=== PATIENT | male | born 1945 | race African-American/Black ===

== ENCOUNTER → 2017-03-03 | Outpatient (CLI) | payer OTHER ==
[~2017-03-03] MED LIST: AMINOPHYLLINE INJ/PF 250 MG/10 ML SDV IV ONE; REGADENOSON INJ 0.4 MG/5 ML DISP.SYRIN IV ONE
--- NOTE | 2017-03-03 14:26 | DRAGON STRESS TEST REPORT ---
INTRAVENOUS LEXISCAN CARDIOLITE STRESS TEST USING SINGLE PHOTON EMMISION COMPUTERIZED TOMOGRAPHIC. DATE OF PROCEDURE: March 03, 2017 INDICATION : Coronary artery disease CARDIAC RISK FACTORS: Diabetes, hypertension, dyslipidemia, history of stent placement. RESTING EKG: Sinus rhythm with minor nonspecific ST-T wave changes STRESS EKG: No significant changes noted with LexiScan bolus REASON FOR TERMINATION: Protocol. PROCEDURE REPORT: Baseline heart rate 64 beats per minute with blood pressure of 158/82. Patient had no significant complaints. Heart rate at 2 minutes post bolus 82 with a blood pressure of 141/66. 3 minutes post bolus heart rate 75 with blood pressure of 150/75. No significant EKG changes were noted. Patient had no significant complaints during the procedure or postprocedure. Patient injected with Aminophyllin 75 mg at 3 minutes or later after Lexiscan bolus. CONCLUSIONS: Normal EKG and hemodynamic response to IV LexiScan. NUCLEAR DATA: At rest the patient was given 14.46 millicuries of technetium 99 sestamibi injected intravenously. As per protocol rest gated SPECT images were obtained. Subsequently the patient was given intravenous LexiScan at a dose of 0.4 mg in 5 mL intravenously, followed by flush with normal saline. Subsequently the stress dose of 45.1 millicuries of technetium 99 sestamibi was injected intravenously. As per protocol stress gated images were obtained. NUCLEAR INTERPRETATION: Both raw and processed data were used for interpretation. Visual, qualitative, computer-generated quantitative data was used. There was good myocardial uptake of technetium compound. Motion artifact and soft tissue attenuations were noted. Increased visceral uptake was noted. No definitive areas of transient perfusion defect noted. No definitive areas of fixed perfusion defect or scars noted. EKG gated imaging showed LV EF at 54 %, rest and stress gated EF similar visually. T. I D. ratio was 1.14. Lung heart ratio noted to be within normal limits 0.39. No significant extracardiac and abnormal radiotracer activities were noted. RV free wall uptake was noted to be mildly increased. IMPRESSION: Also refer to comments under nuclear interpretation. Also test results needs to be interpreted in the context of pretest probability. 1. There is no definitive scintigraphic evidence of LexiScan induced myocardial ischemia. 2. There is no definitive scintigraphic evidence of myocardial infarction/scar. 3. EKG gated imaging shows left ventricular ejection fraction of approximately 54 %. 4. Clinical correlation requested as occasionally single vessel disease or balanced ischemia could be missed. In approximately 10% of the cases Lexiscan may not cause adequate vasodilatory stress. RECOMMENDATIONS: Aggressive risk factor modification, medical therapy. Clinical correlation with echocardiogram derived ejection fraction. Inability to exercise by itself can lead to increased cardiovascular event risks. Consider cardiology consultation and or follow-up if clinically indicated. I AM AVAILABLE FOR CARDIOLOGY CONSULTATION AND FOLLOWUP IF REQUESTED BY PMD Tori Almeida M.D., [employer] Engineer aerial installer, Board certified in cardiovascular diseases, Nuclear cardiology, Echocardiography Cardiac CT and cardiac MRI Ph. [phone] [facility]
== END ==
LOC: RAD 06:58
PROVIDERS: ATTEND Internal Medicine Cardiovascular Disease
DX: R07.9 Chest pain, unspecified (principal); I25.10 Atherosclerotic heart disease of native coronary artery without angina pectoris; Z98.61 Coronary angioplasty status; I10 Essential (primary) hypertension; E78.5 Hyperlipidemia, unspecified; E11.9 Type 2 diabetes mellitus without complications
CPT/HCPCS: 93017; 78452; A9500; J2785; J0280; Q9969

== ENCOUNTER 2017-10-06 23:05 | Emergency (ER) | payer OTHER, MEDICARE ==
--- NOTE | 2017-10-07 00:30 | ER Document Report ---
ED General - General Mode of Arrival: Ambulatory Information source: Patient TRAVEL OUTSIDE OF THE [place] IN LAST 30 DAYS: No <SAMMIE RICHTER - Last Filed: 10/07/17 01:25> <PAYAL LOUIS - Last Filed: 10/07/17 06:44> - General Chief Complaint: Inability to Void Stated Complaint: URINARY RETENTION Time Seen by Provider: 10/07/17 00:12 Notes: Patient is a 72-year-old male with a history of AR, diabetes, HTN, and high cholesterol presenting to the emergency department complaining of dysuria onset this morning with associated symptoms of hematuria and blood in stool. Patient states that he had a prostate biopsy this morning and has been unable to fully urinate further stating that he has only been able to excrete a few drops of urine even though he has the urgency to urinate. Patient states that he has had a prostate biopsy in the past where similar symptoms occurred where he needed to have a catheter placed, further stating his symptoms were relieved after doing so. Patient also states he noticed a small amount of blood in stool , last noticed around 21:00 today. Patient also complains of some chest pain onset today. Patient states his chest pain is not similar to his symptoms of his previous AR. (SAMMIE RICHTER) - Related Data Allergies/Adverse Reactions: No Known Allergies Allergy (Verified 08/28/14 20:05) Past Medical History - General Information source: Patient, Relative - Social History Smoking Status: Never Smoker Cigarette use (# per day): No Chew tobacco use (# tins/day): No Smoking Education Provided: No Frequency of alcohol use: None Family History: Reviewed & Not Pertinent - Past Medical History Cardiac Medical History: Reports: Hx Heart Attack, Hx Hypercholesterolemia, Hx Hypertension Pulmonary Medical History: Reports: Hx COPD Endocrine Medical History: Reports: Hx Diabetes Mellitus Type 2 Past Surgical History: Reports: Hx Cardiac Surgery - stent, Hx Coronary Stent - Immunizations Hx Diphtheria, Pertussis, Tetanus Vaccination: Yes <SAMMIE RICHTER - Last Filed: 10/07/17 01:25> Review of Systems - Review of Systems Constitutional: No symptoms reported EENT: No symptoms reported Cardiovascular: See HPI, Chest pain Respiratory: No symptoms reported Gastrointestinal: No symptoms reported Genitourinary: See HPI, Dysuria, Urgency Male Genitourinary: No symptoms reported Musculoskeletal: No symptoms reported Skin: No symptoms reported Hematologic/Lymphatic: No symptoms reported Neurological/Psychological: No symptoms reported -: Yes All other systems reviewed and negative <ROBERSAMMIE ROBBINS - Last Filed: 10/07/17 01:25> Physical Exam <SAMMIE RICHTER - Last Filed: 10/07/17 01:25> <PAYAL LOUIS - Last Filed: 10/07/17 06:44> - Vital signs Vitals: Temp Pulse Resp BP Pulse Ox 97.9 F 98 18 197/96 H 97 10/06/17 23:13 10/06/17 23:13 10/06/17 23:13 10/06/17 23:13 10/06/17 23:13 - Notes Notes: GENERAL: Alert, interacts well. Appears uncomfortable. HEAD: Normocephalic, atraumatic. EYES: Pupils equal, round, and reactive to light. Extraocular movements intact. ENT: Oral mucosa moist, tongue midline. NECK: Full range of motion. Supple. Trachea midline. LUNGS: Clear to auscultation bilaterally, no wheezes, rales, or rhonchi. No respiratory distress. HEART: Regular rate and rhythm. No murmurs, gallops, or rubs. ABDOMEN: Bladder distended which is tender to palpation. Bowel sounds present in all 4 quadrants. EXTREMITIES: Moves all 4 extremities spontaneously. NEUROLOGICAL: Alert and oriented x3. Normal speech. PSYCH: Normal affect, normal mood. SKIN: Warm, dry, normal turgor. No rashes or lesions noted. (SAMMIE RICHTER) Course - Laboratory Result Diagrams: 10/07/17 01:10 10/07/17 01:10 <ROBER,TAMJULIAN - Last Filed: 10/07/17 01:25> - Laboratory Result Diagrams: 10/07/17 01:10 10/07/17 01:10 <PAYAL LOUIS - Last Filed: 10/07/17 06:44> - Re-evaluation Re-evalutation: 10/07/17 01:19 Patient is rechecked, pain is completely resolved including his chest pain, abdomen is palpated and soft after Venegas catheter placement, 1200 mL's of clear yellow urine have been obtained at this point. Feeling much better. 10/07/17 03:43 CBC unremarkable, CMP grossly unremarkable, cardiac enzymes negative, CBC shows slight leukocytosis at 12.2 likely a reaction to the biopsy today, mild anemia with hemoglobin 12.6 otherwise unremarkable, chemistries show sodium slightly below 136.7, potassium low at 3.2, given potassium by mouth, cardiac enzymes negative. All pain and all symptoms resolved after Venegas catheter was placed. Well over 1500 mL's of clear urine were obtained. No evidence of active bleeding at this time. Patient will be discharged to home with Venegas catheter in place. Encouraged to follow-up with urology as an outpatient. 10/07/17 03:43 Already taking Flomax. (PAYAL LOUIS) - Vital Signs Vital signs: Temp Pulse Resp BP Pulse Ox 97.9 F 72 18 152/84 H 98 10/06/17 23:13 10/07/17 04:00 10/07/17 04:00 10/07/17 04:00 10/07/17 04:00 - Laboratory Laboratory results interpreted by me: 10/07/17 10/07/17 01:10 01:10 WBC 12.4 H Hgb 12.6 L Hct 37.5 L Seg Neuts % (Manual) 91 H Lymphocytes % (Manual) 2 L Abs Neuts (Manual) 11.3 H Abs Lymphs (Manual) 0.2 L Sodium 136.7 L Potassium 3.2 L Glucose 117 H Discharge <SAMMIE RICHTER - Last Filed: 10/07/17 01:25> <PAYAL LOUIS - Last Filed: 10/07/17 06:44> - Discharge Clinical Impression: Acute urinary retention Condition: Stable Disposition: HOME, SELF-CARE Referrals: TERESA MISTRY MD [Primary Care Provider] - Follow up in 3-5 days Scribe Attestation: 10/07/17 06:44 I personally performed the services described in the documentation, reviewed and edited the documentation which was dictated to the scribe in my presence, and it accurately records my words and actions. (PAYAL LOUIS) Scribe Documentation - Scribe Written by Arsenio:: Arsenio Macias, 10/07/2017 00:55 acting as scribe for :: King <SAMMIE RICHTER - Last Filed: 10/07/17 01:25>
[2017-10-07 01:36] LABS: HEMATOCRIT 37.5 % (37.9-51.0); HEMOGLOBIN 12.6 g/dL (13.5-17.0); MEAN CORPUSCULAR HEMOGLOBIN 28.4 pg (27.0-33.4); MEAN CORPUSCULAR HGB CONC 33.7 g/dL (32.0-36.0); MEAN CORPUSCULAR VOLUME 85 fl (80-97); PLATELET COUNT 187 10^3/uL (150-450); RED BLOOD COUNT 4.44 10^6/uL (4.35-5.55); RED CELL DISTRIBUTION WIDTH 13.8 % (11.5-14.0); WHITE BLOOD COUNT 12.4 10^3/uL (4.0-10.5)
[2017-10-07 01:50] LABS: ALANINE AMINOTRANSFERASE 28 U/L (21-72); ALBUMIN 3.9 g/dL (3.5-5.0); ALKALINE PHOSPHATASE 55 U/L (38-126); ANION GAP 12 (5-19); ASPARTATE AMINO TRANSFERASE 22 U/L (17-59); BILIRUBIN,DIRECT 0.4 mg/dL (0.0-0.4); BILIRUBIN,TOTAL 0.7 mg/dL (0.2-1.3); BLOOD UREA NITROGEN 20 mg/dL (7-20); CALCIUM 9.4 mg/dL (8.4-10.2); CARBON DIOXIDE 24 mmol/L (22-30); CHLORIDE 101 mmol/L (98-107); CREATINE KINASE 159 U/L (55-170); GLUCOSE 117 mg/dL (75-110); POTASSIUM 3.2 mmol/L (3.6-5.0); SODIUM 136.7 mmol/L (137-145); TOTAL PROTEIN 6.9 g/dL (6.3-8.2)
[2017-10-07 01:59] LABS: ABSOLUTE LYMPHOCYTES# (MANUAL) 0.2 10^3/uL (0.5-4.7); ABSOLUTE MONOCYTES # (MANUAL) 0.9 10^3/uL (0.1-1.4); ABSOLUTE NEUTROPHILS# (MANUAL) 11.3 10^3/uL (1.7-8.2); BASOPHILS % (MANUAL) 0 % (0-2); EOSINOPHILS % (MANUAL) 0 % (0-6); LYMPHOCYTES % (MANUAL) 2 % (13-45); MONOCYTES % (MANUAL) 7 % (3-13); SEGMENTED NEUTROPHILS % (MAN) 91 % (42-78); TOTAL CELLS COUNTED 100
[2017-10-07 02:01] LABS: ANISOCYTOSIS SLIGHT; PLATELET COMMENT ADEQUATE; PLATELET LARGE PRESENT; SCHISTOCYTES SLIGHT; TOXIC GRANULATION SLIGHT
[2017-10-07 02:13] LABS: CREATINE KINASE MB 1.43 ng/mL (<4.55)
[2017-10-07 02:14] LABS: TROPONIN I < 0.012 ng/mL
[2017-10-07 04:44] VITALS: BP 152/84
== END 2017-10-07 04:00 | disposition home or self-care (01) ==
LOC: ER 23:05
PROC: 0T9B70Z Drainage of Bladder with Drainage Device, Via Natural or Artificial Opening (ICD-10-PCS; principal; 2017-10-06)
DX: R33.9 Retention of urine, unspecified (principal); R30.0 Dysuria; R39.15 Urgency of urination; R31.9 Hematuria, unspecified; K92.1 Melena; R07.9 Chest pain, unspecified; E11.9 Type 2 diabetes mellitus without complications; I10 Essential (primary) hypertension; I25.2 Old myocardial infarction; J44.9 Chronic obstructive pulmonary disease, unspecified; Z79.899 Other long term (current) drug therapy
CPT/HCPCS: 36415; 51702; 80053; 82550; 82553; 84484; 85025; 99283

== ENCOUNTER 2017-10-08 21:16 | Inpatient (IN) | payer OTHER, MEDICARE ==
[2017-10-08] MEDS ORDERED: LIDOCAINE 2% URO-JET 5 ML KIT MM ONE (21:44)
[2017-10-08 22:49] LABS: HEMATOCRIT 35.6 % (37.9-51.0); HEMOGLOBIN 12.3 g/dL (13.5-17.0); MEAN CORPUSCULAR HEMOGLOBIN 29.1 pg (27.0-33.4); MEAN CORPUSCULAR HGB CONC 34.5 g/dL (32.0-36.0); MEAN CORPUSCULAR VOLUME 84 fl (80-97); PLATELET COUNT 159 10^3/uL (150-450); RED BLOOD COUNT 4.22 10^6/uL (4.35-5.55); RED CELL DISTRIBUTION WIDTH 14.4 % (11.5-14.0)
[2017-10-08 22:55] LABS: AMORPHOUS SEDIMENT,URINE TRACE /HPF; APPEARANCE,URINE SLIGHTLY-CLOUDY; BILIRUBIN,URINE NEGATIVE (NEGATIVE); COLOR,URINE YELLOW; GLUCOSE, URINE NEGATIVE (NEGATIVE); KETONES,URINE NEGATIVE (NEGATIVE); LEUKOCYTE ESTERASE,URINE SMALL (NEGATIVE); NITRITE,URINE NEGATIVE (NEGATIVE); PROTEIN,URINE 30 mg/dL (NEGATIVE); URINE SPECIFIC GRAVITY 1.006; UROBILINOGEN,URINE NEGATIVE mg/dL (<2.0)
[2017-10-08 23:02] LABS: ABSOLUTE LYMPHOCYTES# (MANUAL) 0.6 10^3/uL (0.5-4.7); ABSOLUTE MONOCYTES # (MANUAL) 2.1 10^3/uL (0.1-1.4); ABSOLUTE NEUTROPHILS# (MANUAL) 16.3 10^3/uL (1.7-8.2); ANISOCYTOSIS SLIGHT; BASOPHILS % (MANUAL) 0 % (0-2); EOSINOPHILS % (MANUAL) 0 % (0-6); LYMPHOCYTES % (MANUAL) 3 % (13-45); MONOCYTES % (MANUAL) 11 % (3-13); PLATELET COMMENT ADEQUATE; SEGMENTED NEUTROPHILS % (MAN) 86 % (42-78); TOTAL CELLS COUNTED 100; TOXIC GRANULATION SLIGHT
[2017-10-08 23:08] LABS: ALANINE AMINOTRANSFERASE 25 U/L (21-72); ALBUMIN 3.7 g/dL (3.5-5.0); ALKALINE PHOSPHATASE 57 U/L (38-126); ANION GAP 13 (5-19); ASPARTATE AMINO TRANSFERASE 22 U/L (17-59); BILIRUBIN,DIRECT 0.2 mg/dL (0.0-0.4); BILIRUBIN,TOTAL 0.9 mg/dL (0.2-1.3); BLOOD UREA NITROGEN 23 mg/dL (7-20); CALCIUM 9.4 mg/dL (8.4-10.2); CARBON DIOXIDE 26 mmol/L (22-30); CHLORIDE 99 mmol/L (98-107); GLUCOSE 149 mg/dL (75-110); POTASSIUM 3.3 mmol/L (3.6-5.0); SODIUM 137.7 mmol/L (137-145); TOTAL PROTEIN 6.5 g/dL (6.3-8.2)
--- NOTE | 2017-10-08 23:36 | ER Document Report ---
ED Fever - General Chief Complaint: Fever Stated Complaint: FEVER Time Seen by Provider: 10/08/17 21:30 Mode of Arrival: Medic Information source: Patient Notes: Patient states that he recently had a prostate biopsy 2 days ago. Patient states that later in the evening on the day he had the biopsy he had difficulty urinating and had to come to the emergency department and had a Jiang catheter placed. Patient states that he has noticed occasional blood in the Jiang catheter tubing. EMS states that patient's Jiang catheter was not attached to the drainage tubing and he was dribbling urine. Patient states that he has had leaking urine from the Jiang for the past 2 days. Patient reports fever and chills today. Patient denies any cough cold symptoms chest pain, abdominal pain or back pain. Patient denies any obvious source for his fever. TRAVEL OUTSIDE OF THE [place] IN LAST 30 DAYS: No - HPI Onset: This evening Onset/Duration: Gradual Quality of pain: No pain Pain Level: Denies Context: Indwelling jiang Associated symptoms: Fever. denies: Chest pain, Nonproductive cough, Productive cough, Diarrhea, Nausea, Vomiting, Sweating Similar symptoms previously: No Recently seen / treated by doctor: Yes - Related Data Allergies/Adverse Reactions: No Known Allergies Allergy (Verified 08/28/14 20:05) Past Medical History - General Information source: Patient - Social History Smoking Status: Never Smoker Frequency of alcohol use: None Drug Abuse: None Occupation: None Lives with: Spouse/Significant other Family History: Reviewed & Not Pertinent - Past Medical History Cardiac Medical History: Reports: Hx Heart Attack, Hx Hypercholesterolemia, Hx Hypertension Pulmonary Medical History: Reports: Hx COPD Endocrine Medical History: Reports: Hx Diabetes Mellitus Type 2 Renal/ Medical History: Reports: Other - Prostate enlargement. Denies: Hx Peritoneal Dialysis Past Surgical History: Reports: Hx Cardiac Surgery - stent, Hx Coronary Stent, Other - Prostate biopsy - Immunizations Hx Diphtheria, Pertussis, Tetanus Vaccination: Yes Review of Systems - Review of Systems Constitutional: Chills, Fever. denies: Recent illness EENT: No symptoms reported Cardiovascular: No symptoms reported. denies: Chest pain, Syncope, Dizziness Respiratory: No symptoms reported. denies: Cough, Short of breath Gastrointestinal: No symptoms reported. denies: Abdominal pain, Diarrhea, Nausea, Vomiting Genitourinary: Retention - Jiang catheter in place. denies: Dysuria Male Genitourinary: No symptoms reported Musculoskeletal: No symptoms reported. denies: Back pain Skin: No symptoms reported Hematologic/Lymphatic: No symptoms reported Neurological/Psychological: No symptoms reported. denies: Confusion, Weakness, Headaches Physical Exam - Vital signs Vitals: Resp Pulse Ox 21 H 97 10/09/17 01:34 10/09/17 01:34 - General General appearance: Appears well, Alert In distress: None - HEENT Head: Normocephalic Eyes: Normal Nasal: Normal Mouth/Lips: Normal Mucous membranes: Normal Neck: Normal, Supple. No: Lymphadenopathy - Respiratory Respiratory status: No respiratory distress Chest status: Nontender Breath sounds: Normal. No: Rales, Rhonchi, Stridor, Wheezing Chest palpation: Normal - Cardiovascular Rhythm: Regular Heart sounds: S1 appreciated, S2 appreciated - Abdominal Inspection: Obese Distension: No distension Bowel sounds: Normal Tenderness: Nontender Organomegaly: No organomegaly - Rectal Tenderness: Yes Hemorrhoids: None Prostate: Tender - Back Back: Normal, Nontender. No: CVA tenderness - Extremities General upper extremity: Normal inspection, Normal strength General lower extremity: Normal inspection, Normal strength - Neurological Neuro grossly intact: Yes Cognition: Normal [place] Coma Scale Eye Opening: Spontaneous [place] Coma Scale Verbal: Oriented [place] Coma Scale Motor: Obeys Commands [place] Coma Scale Total: 15 - Psychological Associated symptoms: Normal affect, Normal mood - Skin Skin Temperature: Warm Skin Moisture: Dry Skin Color: Normal Course - Re-evaluation Re-evalutation: 10/08/17 23:54 Patient's abdomen continues soft, nontender, no flank tenderness. Consulted with Dr. Deluca regarding patient presentation, advises finishing septic evaluation including lactic acid testing and consultation with his primary doctor for admission. Recommends treating with cefepime and vancomycin. 10/08/17 23:58 Patient's repeat vital signs 98.8, 18, 98%, 121/57 10/09/17 00:[address] Powell regarding patient presentation, reviewed diagnostic test results. Dr. Powell agrees to accept patient as a telemetry admission. 10/09/17 01:02 RN encouraged to have patient on drag seiner. 10/09/17 03:00 Vital signs continue stable, patient denies any concerns at this time. - Vital Signs Vital signs: Temp Pulse Resp BP Pulse Ox 98.4 F 70 16 121/71 100 10/09/17 03:10 10/09/17 03:10 10/09/17 03:10 10/09/17 03:10 10/09/17 03:10 - Laboratory Result Diagrams: 10/08/17 22:29 10/08/17 22:29 Laboratory results interpreted by me: 10/08/17 10/08/17 10/08/17 22:29 22:29 22:29 WBC 19.0 H RBC 4.22 L Hgb 12.3 L Hct 35.6 L RDW 14.4 H Seg Neuts % (Manual) 86 H Lymphocytes % (Manual) 3 L Abs Neuts (Manual) 16.3 H Abs Monocytes (Manual) 2.1 H PT VBG pH Potassium 3.3 L BUN 23 H Creatinine 1.61 H Est GFR ( Amer) 52 L Est GFR (Non-Af Amer) 43 L Glucose 149 H Urine Protein 30 H Urine Blood LARGE H Ur Leukocyte Esterase SMALL H 10/08/17 10/09/17 22:29 00:45 WBC RBC Hgb Hct RDW Seg Neuts % (Manual) Lymphocytes % (Manual) Abs Neuts (Manual) Abs Monocytes (Manual) PT 16.7 H VBG pH 7.44 H Potassium BUN Creatinine Est GFR ( Amer) Est GFR (Non-Af Amer) Glucose Urine Protein Urine Blood Ur Leukocyte Esterase 10/09/17 07:27 Labs- Entire Visit 10/08/17 10/08/17 10/08/17 22:29 22:29 22:29 WBC 19.0 H RBC 4.22 L Hgb 12.3 L Hct 35.6 L MCV 84 MCH 29.1 MCHC 34.5 RDW 14.4 H Plt Count 159 Total Counted 100 Seg Neutrophils % Not Reportable Seg Neuts % (Manual) 86 H Lymphocytes % Not Reportable Lymphocytes % (Manual) 3 L Monocytes % Not Reportable Monocytes % (Manual) 11 Eosinophils % Not Reportable Eosinophils % (Manual) 0 Basophils % Not Reportable Basophils % (Manual) 0 Absolute Neutrophils Not Reportable Abs Neuts (Manual) 16.3 H Absolute Lymphocytes Not Reportable Abs Lymphs (Manual) 0.6 Absolute Monocytes Not Reportable Abs Monocytes (Manual) 2.1 H Absolute Eosinophils Not Reportable Absolute Eos (Manual) 0.0 Absolute Basophils Not Reportable Abs Basophils (Manual) 0.0 Toxic Granulation SLIGHT Platelet Comment ADEQUATE Anisocytosis SLIGHT PT INR APTT VBG pH VBG pCO2 VBG HCO3 VBG Base Excess Sodium 137.7 Potassium 3.3 L Chloride 99 Carbon Dioxide 26 Anion Gap 13 BUN 23 H Creatinine 1.61 H Est GFR ( Amer) 52 L Est GFR (Non-Af Amer) 43 L Glucose 149 H POC Glucose Lactic Acid Calcium 9.4 Phosphorus Magnesium Total Bilirubin 0.9 Direct Bilirubin 0.2 Neonat Total Bilirubin Not Reportable Neonat Direct Bilirubin Not Reportable Neonat Indirect Bili Not Reportable AST 22 ALT 25 Alkaline Phosphatase 57 Ammonia Total Protein 6.5 Albumin 3.7 Amylase Lipase TSH Free T4 Urine Color YELLOW Urine Appearance SLIGHTLY-CLOUDY Urine pH 6.0 Ur Specific [place] 1.006 Urine Protein 30 H Urine Glucose (UA) NEGATIVE Urine Ketones NEGATIVE Urine Blood LARGE H Urine Nitrite NEGATIVE Urine Bilirubin NEGATIVE Urine Urobilinogen NEGATIVE Ur Leukocyte Esterase SMALL H Urine WBC (Auto) 1 Urine RBC (Auto) 29 U Hyaline Cast (Auto) 1 Squamous Epi Cells Auto <1 Amorphous Sediment Auto TRACE Urine Mucus (Auto) RARE Urine Ascorbic Acid NEGATIVE Stool Occult Blood 10/08/17 10/08/17 10/08/17 22:29 22:29 23:44 WBC RBC Hgb Hct MCV MCH MCHC RDW Plt Count Total Counted Seg Neutrophils % Seg Neuts % (Manual) Lymphocytes % Lymphocytes % (Manual) Monocytes % Monocytes % (Manual) Eosinophils % Eosinophils % (Manual) Basophils % Basophils % (Manual) Absolute Neutrophils Abs Neuts (Manual) Absolute Lymphocytes Abs Lymphs (Manual) Absolute Monocytes Abs Monocytes (Manual) Absolute Eosinophils Absolute Eos (Manual) Absolute Basophils Abs Basophils (Manual) Toxic Granulation Platelet Comment Anisocytosis PT 16.7 H INR 1.29 APTT VBG pH VBG pCO2 VBG HCO3 VBG Base Excess Sodium Potassium Chloride Carbon Dioxide Anion Gap BUN Creatinine Est GFR ( Amer) Est GFR (Non-Af Amer) Glucose POC Glucose Lactic Acid Calcium Phosphorus Magnesium 1.9 Total Bilirubin Direct Bilirubin Neonat Total Bilirubin Neonat Direct Bilirubin Neonat Indirect Bili AST ALT Alkaline Phosphatase Ammonia Total Protein Albumin Amylase Lipase TSH Free T4 Urine Color Urine Appearance Urine pH Ur Specific [place] Urine Protein Urine Glucose (UA) Urine Ketones Urine Blood Urine Nitrite Urine Bilirubin Urine Urobilinogen Ur Leukocyte Esterase Urine WBC (Auto) Urine RBC (Auto) U Hyaline Cast (Auto) Squamous Epi Cells Auto Amorphous Sediment Auto Urine Mucus (Auto) Urine Ascorbic Acid Stool Occult Blood NEGATIVE 10/09/17 10/09/17 10/09/17 00:45 00:45 05:10 WBC RBC Hgb Hct MCV MCH MCHC RDW Plt Count Total Counted Seg Neutrophils % Seg Neuts % (Manual) Lymphocytes % Lymphocytes % (Manual) Monocytes % Monocytes % (Manual) Eosinophils % Eosinophils % (Manual) Basophils % Basophils % (Manual) Absolute Neutrophils Abs Neuts (Manual) Absolute Lymphocytes Abs Lymphs (Manual) Absolute Monocytes Abs Monocytes (Manual) Absolute Eosinophils Absolute Eos (Manual) Absolute Basophils Abs Basophils (Manual) Toxic Granulation Platelet Comment Anisocytosis PT INR APTT VBG pH 7.44 H VBG pCO2 37.5 VBG HCO3 24.7 VBG Base Excess 0.7 Sodium Potassium Chloride Carbon Dioxide Anion Gap BUN Creatinine Est GFR ( Amer) Est GFR (Non-Af Amer) Glucose POC Glucose Lactic Acid 1.1 Calcium Phosphorus Magnesium Total Bilirubin Direct Bilirubin Neonat Total Bilirubin Neonat Direct Bilirubin Neonat Indirect Bili AST ALT Alkaline Phosphatase Ammonia < 8.7 L Total Protein Albumin Amylase Lipase TSH Free T4 Urine Color Urine Appearance Urine pH Ur Specific [place] Urine Protein Urine Glucose (UA) Urine Ketones Urine Blood Urine Nitrite Urine Bilirubin Urine Urobilinogen Ur Leukocyte Esterase Urine WBC (Auto) Urine RBC (Auto) U Hyaline Cast (Auto) Squamous Epi Cells Auto Amorphous Sediment Auto Urine Mucus (Auto) Urine Ascorbic Acid Stool Occult Blood 10/09/17 10/09/17 10/09/17 05:10 05:10 05:18 WBC RBC Hgb Hct MCV MCH MCHC RDW Plt Count Total Counted Seg Neutrophils % Seg Neuts % (Manual) Lymphocytes % Lymphocytes % (Manual) Monocytes % Monocytes % (Manual) Eosinophils % Eosinophils % (Manual) Basophils % Basophils % (Manual) Absolute Neutrophils Abs Neuts (Manual) Absolute Lymphocytes Abs Lymphs (Manual) Absolute Monocytes Abs Monocytes (Manual) Absolute Eosinophils Absolute Eos (Manual) Absolute Basophils Abs Basophils (Manual) Toxic Granulation Platelet Comment Anisocytosis PT 16.8 H INR 1.30 APTT 37.4 H VBG pH VBG pCO2 VBG HCO3 VBG Base Excess Sodium Potassium Chloride Carbon Dioxide Anion Gap BUN Creatinine Est GFR ( Amer) Est GFR (Non-Af Amer) Glucose POC Glucose Lactic Acid 1.0 Calcium Phosphorus Magnesium Total Bilirubin Direct Bilirubin Neonat Total Bilirubin Neonat Direct Bilirubin Neonat Indirect Bili AST ALT Alkaline Phosphatase Ammonia Total Protein Albumin Amylase Lipase TSH 2.19 Free T4 0.95 Urine Color Urine Appearance Urine pH Ur Specific [place] Urine Protein Urine Glucose (UA) Urine Ketones Urine Blood Urine Nitrite Urine Bilirubin Urine Urobilinogen Ur Leukocyte Esterase Urine WBC (Auto) Urine RBC (Auto) U Hyaline Cast (Auto) Squamous Epi Cells Auto Amorphous Sediment Auto Urine Mucus (Auto) Urine Ascorbic Acid Stool Occult Blood 10/09/17 10/09/17 05:18 07:02 WBC RBC Hgb Hct MCV MCH MCHC RDW Plt Count Total Counted Seg Neutrophils % Seg Neuts % (Manual) Lymphocytes % Lymphocytes % (Manual) Monocytes % Monocytes % (Manual) Eosinophils % Eosinophils % (Manual) Basophils % Basophils % (Manual) Absolute Neutrophils Abs Neuts (Manual) Absolute Lymphocytes Abs Lymphs (Manual) Absolute Monocytes Abs Monocytes (Manual) Absolute Eosinophils Absolute Eos (Manual) Absolute Basophils Abs Basophils (Manual) Toxic Granulation Platelet Comment Anisocytosis PT INR APTT VBG pH VBG pCO2 VBG HCO3 VBG Base Excess Sodium Potassium Chloride Carbon Dioxide Anion Gap BUN Creatinine Est GFR ( Amer) Est GFR (Non-Af Amer) Glucose POC Glucose 108 Lactic Acid Calcium Phosphorus 3.5 Magnesium Total Bilirubin Direct Bilirubin Neonat Total Bilirubin Neonat Direct Bilirubin Neonat Indirect Bili AST ALT Alkaline Phosphatase Ammonia Total Protein Albumin Amylase 32 Lipase 51.1 TSH Free T4 Urine Color Urine Appearance Urine pH Ur Specific [place] Urine Protein Urine Glucose (UA) Urine Ketones Urine Blood Urine Nitrite Urine Bilirubin Urine Urobilinogen Ur Leukocyte Esterase Urine WBC (Auto) Urine RBC (Auto) U Hyaline Cast (Auto) Squamous Epi Cells Auto Amorphous Sediment Auto Urine Mucus (Auto) Urine Ascorbic Acid Stool Occult Blood Discharge - Discharge Clinical Impression: Renal function test abnormal Fever Qualifiers: Fever type: unspecified Qualified Code(s): R50.9 - Fever, unspecified Sepsis Qualifiers: Sepsis type: sepsis due to unspecified organism Qualified Code(s): A41.9 - Sepsis, unspecified organism Condition: Fair Disposition: ADMITTED INPATIENT Admitting Provider: Andre Unit Admitted: Telemetry
[2017-10-08] MEDS ORDERED: CEFEPIME INJ 1 GM VIAL IM ONE (23:46)
[2017-10-08] MEDS ORDERED: NORMAL SALINE 1000 ML 1,000 ML IV ONE (23:48)
[2017-10-08] MEDS ORDERED: VANCOMYCIN HCL INJ 1000 MG VIAL IV ONE (23:53)
[2017-10-09 00:07] LABS: INTERNATIONAL RATION (INR) 1.29; PROTHROMBIN TIME 16.7 SEC (11.4-15.4)
[2017-10-09] MEDS ORDERED: VANCOMYCIN HCL INJ 1000 MG VIAL IV ONE (00:33)
[2017-10-09] MEDS ORDERED: CEFEPIME 2 GM/D5W RTU 2 GM/50 ML RTUPB IV ONE (00:33)
--- NOTE | 2017-10-09 00:47 | RADIOLOGY REPORT (SQ) ---
EXAM DESCRIPTION: CHEST 2 VIEWS CLINICAL HISTORY: 72 years Male, fever COMPARISON: None. NUMBER OF VIEWS/TECHNIQUE: 2, PA and Lateral LIMITATIONS: Suboptimal AP penetration FINDINGS: Moderate lung volume. Clear parenchyma. Normal cardiac silhouette. Intact bony thorax. IMPRESSION: No acute cardiopulmonary findings.
[2017-10-09] MEDS ORDERED: POTASSIUM CHLORIDE 10 MEQ TABLET.SA PO ONE (01:03)
[2017-10-09 01:15] LABS: VENOUS BLOOD BASE EXCESS 0.7 mmol/L; VENOUS BLOOD HCO3 24.7 mmol/L (20-32); VENOUS BLOOD PCO2 37.5 mmHg (35-63); VENOUS BLOOD PH 7.44 (7.30-7.42)
[2017-10-09] MEDS ORDERED: GLUCAGON,HUMAN RECOMB 1 MG INJ IM PRN (04:26)
[2017-10-09] MEDS ORDERED: DEXTROSE 50%-WATER 25 GM/50 ML DISP.SYRIN IV PRN ×2 (04:26)
[2017-10-09] MEDS ORDERED: DEXTROSE 40% GEL 15 GM TUBE PO PRN ×2 (04:26)
[2017-10-09] MEDS ORDERED: INSULIN LISPRO 100 UNIT/ML 3 ML VIAL SUBCUT PRN (04:26)
[2017-10-09 05:49] LABS: LIPASE 51.1 U/L (23-300); PHOSPHORUS 3.5 mg/dL (2.5-4.5)
[2017-10-09 06:06] LABS: FREE T4 (FREE THYROXINE) 0.95 ng/dL (0.78-2.19)
[2017-10-09 06:20] LABS: THYROID STIMULATING HORMONE 2.19 uIU/mL (0.47-4.68)
[2017-10-09 06:23] LABS: PARTIAL THROMBOPLASTIN TIME 37.4 SEC (23.5-35.8); PROTHROMBIN TIME 16.8 SEC (11.4-15.4)
[2017-10-09] MEDS: HEPARIN SOD (PORCINE) 5,000 UNIT/ML 1 ML SYRINGE SUBCUT SCH ×3 (06:58→22:13)
[2017-10-09] MEDS: NORMAL SALINE 1000 ML 1,000 ML IV PRN (07:00)
--- NOTE | 2017-10-09 08:20 | EKG REPORT ---
SEVERITY:- ABNORMAL ECG - SINUS RHYTHM NONSPECIFIC T ABNORMALITIES, INFERIOR LEADS : Confirmed by: Mike Valles MD 09-Oct-2017 08:19:38
[2017-10-09] MEDS ORDERED: ERTAPENEM SODIUM 1 GM in NORMAL SALINE 50 ML IV SCH (10:00)
[2017-10-09] MEDS ORDERED: ALBUTEROL SULFATE HFA (90 MCG/PUFF) 8 GM MDI (1 MDI/ER DISP) IH PRN (10:37)
[2017-10-09] MEDS ORDERED: SPIRONOLACT PO SCH (10:45)
[2017-10-09] MEDS ORDERED: (PENDING PHARMACY ID) (Multivitamin [Multivitamins] 1 TAB) PO SCH (10:45)
[2017-10-09] MEDS ORDERED: HYDROCHLOROTHIAZID PO SCH (10:45)
[2017-10-09] MEDS ORDERED: ISOSORBIDE MONONITRATE 30 MG TAB.ER.24H PO SCH (10:45)
[2017-10-09] MEDS ORDERED: ALBUTEROL SULFATE HFA (90 MCG/PUFF) 200 PUFF/8.5 GM MDI IH PRN (10:52)
[2017-10-09] MEDS ORDERED: METFORMIN HCL 500 MG TABLET PO SCH (11:00)
[2017-10-09] MEDS ORDERED: TAMSULOSIN HCL 0.4 MG CAP.SR.24H PO SCH ×2 (11:00→18:00)
[2017-10-09] MEDS ORDERED: HYDROCHLOROTHIAZIDE 25 MG TABLET PO ONE (11:30)
[2017-10-09] MEDS ORDERED: FERROUS SULFATE 325 MG TABLET PO ONE (11:30)
[2017-10-09] MEDS ORDERED: SPIRONOLACTONE 25 MG TABLET PO ONE (11:30)
[2017-10-09] MEDS ORDERED: MULTIVITAMIN TABLET PO ONE (11:30)
[2017-10-09] MEDS: ERTAPENEM SODIUM 1 GM in NORMAL SALINE 100 ML IV SCH (11:33)
[2017-10-09] MEDS: ASPIRIN 81 MG TABLET, CHEWABLE PO SCH (11:35)
[2017-10-09] MEDS ORDERED: ISOSORBIDE MONONITRATE 60 MG TAB.ER.24H PO ONE (12:00)
--- NOTE | 2017-10-09 12:25 | PDOC H&P ---
History of Present Illness Admission Date/PCP: 10/09/17 00:54 TERESA MISTRY MD History of Present Illness: EDUARD CROUCH SR is a 72 year old male he has a history of type 2 diabetes mellitus benign prostate hyperplasia, he had prostate biopsy done about 2 days ago, he came to the emergency room because he could not urinate after the biopsy was done. The prostate biopsy was done at the [facility] in [place]. In the emergency room a Venegas catheter was inserted and he was advised to see me in the office, urethral emergency room last night because he was dribbling urine, he had a fever the emergency room was evaluated, he was found to be febrile there was associated leukocytosis, it was felt that he was septic from UTI, hospital admission was advised by the ED physician. Past Medical History Cardiac Medical History: Reports: Myocardial Infarction, Hyperlipidema, Hypertension Pulmonary Medical History: Reports: Chronic Obstructive Pulmonary Disease (COPD) Endocrine Medical History: Reports: Diabetes Mellitus Type 2 Renal/ Medical History: Reports: Other - Prostate enlargement Past Surgical History Past Surgical History: Reports: Coronary Stent, Other - Prostate biopsy Social History Lives with: Spouse/Significant other Smoking Status: Never Smoker Frequency of Alcohol Use: None Hx Recreational Drug Use: No Drugs: None Hx Prescription Drug Abuse: No Family History Family History: Reviewed & Not Pertinent Parental Family History Reviewed: Yes Children Family History Reviewed: Yes Sibling(s) Family History Reviewed.: Yes Medication/Allergy Home Medications: RX: Albuterol Sulfate [Ventolin HFA MDI 18 GM] 1 puff IH Q4HP PRN 05/30/12 RX: Metformin HCl [Glucophage 500 mg Tablet] 500 mg PO Q12 05/30/12 RX: Aspirin [Aspirin 81 mg Chewable Tablet] 1 tab PO DAILY 11/25/15 RX: Ferrous Sulfate [Feosol] 325 mg PO DAILY 11/25/15 RX: Multivitamin [Multivitamins] 1 tab PO DAILY 11/25/15 RX: Spironolact/Hydrochlorothiazid [Aldactazide 25-25 Tablet] 1 tab PO DAILY RX: Tamsulosin HCl [Flomax 0.4 mg Cap.sr] 0.4 mg PO DAILY 11/25/15 Atorvastatin Calcium [Lipitor 40 mg Tablet] 40 mg PO QHS 10/09/17 Isosorbide Mononitrate [Isosorbide Mononitrate ER] 60 mg PO DAILY 10/09/17 Nitroglycerin [Nitrostat] 0.4 mg SL DAILYP PRN 10/09/17 Allergies/Adverse Reactions: No Known Allergies Allergy (Verified 08/28/14 20:05) Review of Systems Constitutional: PRESENT: chills, fever(s) Eyes: ABSENT: visual disturbances Ears: ABSENT: hearing changes Cardiovascular: ABSENT: chest pain, dyspnea on exertion, edema, orthropnea, palpitations Respiratory: ABSENT: as per HPI, cough, dyspnea, hemoptysis, sputum, other Gastrointestinal: ABSENT: abdominal pain, constipation, diarrhea, hematemesis, hematochezia, nausea, vomiting Genitourinary: ABSENT: dysuria, hematuria Musculoskeletal: ABSENT: joint swelling Integumentary: ABSENT: rash, wounds Neurological: ABSENT: abnormal gait, abnormal speech, confusion, dizziness, focal weakness, syncope Psychiatric: ABSENT: anxiety, depression, homidical ideation, suicidal ideation Endocrine: ABSENT: cold intolerance, heat intolerance, menstrual abnormalities, polydipsia, polyuria Hematologic/Lymphatic: ABSENT: easy bleeding, easy bruising, lymphadenopathy Physical Exam Vital Signs: Temp Pulse Resp BP Pulse Ox 99.5 F 73 18 129/68 H 98 10/09/17 07:56 10/09/17 07:56 10/09/17 07:56 10/09/17 07:56 10/09/17 07:56 Intake & Output 10/08/17 10/09/17 10/10/17 06:59 06:59 06:59 Weight 112.7 kg General appearance: PRESENT: no acute distress, well-developed, well-nourished Head exam: PRESENT: atraumatic, normocephalic Eye exam: PRESENT: EOMI, PERRLA, other - Right conjunctival hemorrhage Ear exam: PRESENT: normal external ear exam Mouth exam: PRESENT: moist, tongue midline Neck exam: PRESENT: full ROM Respiratory exam: PRESENT: clear to auscultation amanda Cardiovascular exam: PRESENT: RRR, +S1, +S2 Vascular exam: PRESENT: normal capillary refill GI/Abdominal exam: PRESENT: normal bowel sounds, soft Rectal exam: PRESENT: deferred Neurological exam: PRESENT: alert Psychiatric exam: PRESENT: appropriate affect, normal mood Skin exam: PRESENT: dry, intact, warm Results Laboratory Results: 0410/09/17 10/09/17 05:10 05:10 05:10 Lactic Acid 1.0 Phosphorus Ammonia < 8.7 L Amylase Lipase TSH 2.19 Free T4 0.95 10/09/17 05:18 Lactic Acid Phosphorus 3.5 Ammonia Amylase 32 Lipase 51.1 TSH Free T4 Impressions: Chest X-Ray 10/08/17 23:46 IMPRESSION: No acute cardiopulmonary findings. Assessment & Plan - Diagnosis (1) Urinary tract infection associated with indwelling urethral catheter Qualifiers: Encounter type: initial encounter Qualified Code(s): T83.511A - Infection and inflammatory reaction due to indwelling urethral catheter, initial encounter ; N39.0 - Urinary tract infection, site not specified; N39.0 - Urinary tract infection, site not specified Is this a current diagnosis for this admission?: Yes Plan: Patient is admitted to the hospital, started on ertapenem to cover potential uropathogens (2) Acute urinary retention Is this a current diagnosis for this admission?: Yes (3) Benign prostate hyperplasia Qualifiers: Lower urinary tract symptom presence: symptoms present Lower urinary tract symptom detail: urinary retention Qualified Code(s): N40.1 - Benign prostatic hyperplasia with lower urinary tract symptoms; R33.8 - Other retention of urine ; R33.8 - Other retention of urine Is this a current diagnosis for this admission?: Yes (4) Type 2 diabetes mellitus with diabetic polyneuropathy Qualifiers: Diabetes mellitus watermelon harvesting supervisor insulin use: without watermelon harvesting supervisor use Qualified Code(s): E11.42 - Type 2 diabetes mellitus with diabetic polyneuropathy Is this a current diagnosis for this admission?: Yes (5) Acute kidney injury Is this a current diagnosis for this admission?: Yes Plan: This is most likely prerenal acute kidney injury (6) Conjunctival hemorrhage of right eye Is this a current diagnosis for this admission?: Yes Plan: Supportive care
[2017-10-09 13:20] LABS: ABSOLUTE LYMPHOCYTES (AUTO) 0.9 10^3/uL (0.5-4.7); ABSOLUTE MONOCYTES (AUTO) 1.2 10^3/uL (0.1-1.4); ABSOLUTE NEUT (AUTO) 13.4 10^3/uL (1.7-8.2); BASOPHILS % (AUTO) 0.2 % (0-2); EOSINOPHILS % (AUTO) 0.1 % (0-6); HEMATOCRIT 34.8 % (37.9-51.0); HEMOGLOBIN 11.8 g/dL (13.5-17.0); LYMPHOCYTES % (AUTO) 5.6 % (13-45); MEAN CORPUSCULAR HEMOGLOBIN 28.3 pg (27.0-33.4); MEAN CORPUSCULAR HGB CONC 33.9 g/dL (32.0-36.0); MEAN CORPUSCULAR VOLUME 84 fl (80-97); MONOCYTES % (AUTO) 7.6 % (3-13); PLATELET COUNT 148 10^3/uL (150-450); RED BLOOD COUNT 4.16 10^6/uL (4.35-5.55); RED CELL DISTRIBUTION WIDTH 14.3 % (11.5-14.0); SEGMENTED NEUTROPHILS % (AUTO) 86.5 % (42-78); TOTAL CELLS COUNTED % (AUTO) 100 %; WHITE BLOOD COUNT 15.5 10^3/uL (4.0-10.5)
[2017-10-09 13:36] LABS: ALANINE AMINOTRANSFERASE 29 U/L (21-72); ALBUMIN 3.2 g/dL (3.5-5.0); ALKALINE PHOSPHATASE 58 U/L (38-126); ANION GAP 10 (5-19); ASPARTATE AMINO TRANSFERASE 15 U/L (17-59); BILIRUBIN,DIRECT 0.4 mg/dL (0.0-0.4); BILIRUBIN,TOTAL 0.5 mg/dL (0.2-1.3); BLOOD UREA NITROGEN 21 mg/dL (7-20); CARBON DIOXIDE 24 mmol/L (22-30); CHLORIDE 105 mmol/L (98-107); GLUCOSE 146 mg/dL (75-110); POTASSIUM 3.4 mmol/L (3.6-5.0); SODIUM 138.7 mmol/L (137-145); TOTAL PROTEIN 6.2 g/dL (6.3-8.2)
[2017-10-09] MEDS: METFORMIN HCL 500 MG TABLET PO SCH (15:42)
[2017-10-09] MEDS: ATORVASTATIN CALCIUM 40 MG TABLET PO SCH (22:13)
[2017-10-10] MEDS: NORMAL SALINE 1000 ML 1,000 ML IV PRN ×3 (02:41→21:30)
[2017-10-10 04:46] LABS: ABSOLUTE EOSINOPHILS # (AUTO) 0.1 10^3/uL (0.0-0.6); ABSOLUTE LYMPHOCYTES (AUTO) 0.8 10^3/uL (0.5-4.7); ABSOLUTE MONOCYTES (AUTO) 1.2 10^3/uL (0.1-1.4); ABSOLUTE NEUT (AUTO) 11.3 10^3/uL (1.7-8.2); BASOPHILS % (AUTO) 0.4 % (0-2); EOSINOPHILS % (AUTO) 0.5 % (0-6); HEMATOCRIT 33.2 % (37.9-51.0); HEMOGLOBIN 11.4 g/dL (13.5-17.0); LYMPHOCYTES % (AUTO) 5.6 % (13-45); MEAN CORPUSCULAR HEMOGLOBIN 28.7 pg (27.0-33.4); MEAN CORPUSCULAR HGB CONC 34.2 g/dL (32.0-36.0); MEAN CORPUSCULAR VOLUME 84 fl (80-97); MONOCYTES % (AUTO) 8.7 % (3-13); PLATELET COUNT 143 10^3/uL (150-450); RED BLOOD COUNT 3.96 10^6/uL (4.35-5.55); RED CELL DISTRIBUTION WIDTH 14.1 % (11.5-14.0); SEGMENTED NEUTROPHILS % (AUTO) 84.8 % (42-78); TOTAL CELLS COUNTED % (AUTO) 100 %; WHITE BLOOD COUNT 13.3 10^3/uL (4.0-10.5)
[2017-10-10 05:07] LABS: ALANINE AMINOTRANSFERASE 24 U/L (21-72); ALBUMIN 3.2 g/dL (3.5-5.0); ALKALINE PHOSPHATASE 55 U/L (38-126); ANION GAP 11 (5-19); ASPARTATE AMINO TRANSFERASE 13 U/L (17-59); BILIRUBIN,DIRECT 0.2 mg/dL (0.0-0.4); BILIRUBIN,TOTAL 0.5 mg/dL (0.2-1.3); BLOOD UREA NITROGEN 20 mg/dL (7-20); CALCIUM 9.1 mg/dL (8.4-10.2); CARBON DIOXIDE 24 mmol/L (22-30); CHLORIDE 103 mmol/L (98-107); CHOLESTEROL 118.45 mg/dL (0-200); GLUCOSE 135 mg/dL (75-110); POTASSIUM 3.3 mmol/L (3.6-5.0); SODIUM 137.9 mmol/L (137-145); TOTAL PROTEIN 5.9 g/dL (6.3-8.2); TRIGLYCERIDES 73 mg/dL (<150)
[2017-10-10 05:18] LABS: DIRECT LDL 52 mg/dL (<100)
[2017-10-10] MEDS: HEPARIN SOD (PORCINE) 5,000 UNIT/ML 1 ML SYRINGE SUBCUT SCH ×3 (05:42→21:29)
[2017-10-10] MEDS: METFORMIN HCL 500 MG TABLET PO SCH ×2 (08:40→16:43)
[2017-10-10] MEDS: FERROUS SULFATE 325 MG TABLET PO SCH (09:08)
[2017-10-10] MEDS: MULTIVITAMIN TABLET PO SCH (09:08)
[2017-10-10] MEDS: SPIRONOLACTONE 25 MG TABLET PO SCH (09:09)
[2017-10-10] MEDS: ISOSORBIDE MONONITRATE 60 MG TAB.ER.24H PO SCH (09:09)
[2017-10-10] MEDS: HYDROCHLOROTHIAZIDE 25 MG TABLET PO SCH (09:09)
[2017-10-10] MEDS: ERTAPENEM SODIUM 1 GM in NORMAL SALINE 100 ML IV SCH (09:10)
[2017-10-10] MEDS: TAMSULOSIN HCL 0.4 MG CAP.SR.24H PO SCH (10:22)
[2017-10-10] MEDS: ASPIRIN 81 MG TABLET, CHEWABLE PO SCH (12:23)
[2017-10-10] MEDS: ACETAMINOPHEN 325 MG TABLET PO PRN ×2 (16:43→21:30)
--- NOTE | 2017-10-10 21:26 | PDOC PROGRESS REPORT ---
Subjective Progress Note for:: 10/10/17 Subjective:: Patient seen by the bedside,He had a fever, presently on IV antibiotic attempted to speak to the urologist Reason For Visit: FEVER/SEPSIS Physical Exam Vital Signs: Temp Pulse Resp BP Pulse Ox 101.2 F H 75 16 97/55 L 98 10/10/17 20:00 10/10/17 20:00 10/10/17 20:00 10/10/17 20:00 10/10/17 20:00 Intake & Output 10/09/17 10/10/17 10/11/17 06:59 06:59 06:59 Intake Total 3120 2643 Output Total 450 1200 Balance 2670 1443 Weight 112.7 kg 112.5 kg General appearance: PRESENT: no acute distress, well-developed, well-nourished Head exam: PRESENT: atraumatic, normocephalic Eye exam: PRESENT: conjunctiva pink, EOMI, PERRLA Ear exam: PRESENT: normal external ear exam Mouth exam: PRESENT: moist, tongue midline Neck exam: PRESENT: full ROM Respiratory exam: PRESENT: clear to auscultation amanda Cardiovascular exam: PRESENT: RRR, +S1, +S2 Pulses: PRESENT: normal dorsalis pedis pul, +2 pedal pulses bilateral Vascular exam: PRESENT: normal capillary refill GI/Abdominal exam: PRESENT: normal bowel sounds, soft Rectal exam: PRESENT: deferred Neurological exam: PRESENT: alert, awake, oriented to person, oriented to place , oriented to time, oriented to situation, CN II-XII grossly intact. ABSENT: motor sensory deficit Psychiatric exam: PRESENT: appropriate affect, normal mood Skin exam: PRESENT: dry, intact, warm. ABSENT: cyanosis, rash Results Laboratory Results: 10/10/17 03:57 10/10/17 03:57 10/10/17 10/10/17 03:57 03:57 WBC 13.3 H RBC 3.96 L Hgb 11.4 L Hct 33.2 L MCV 84 MCH 28.7 MCHC 34.2 RDW 14.1 H Plt Count 143 L Seg Neutrophils % 84.8 H Lymphocytes % 5.6 L Monocytes % 8.7 Eosinophils % 0.5 Basophils % 0.4 Absolute Neutrophils 11.3 H Absolute Lymphocytes 0.8 Absolute Monocytes 1.2 Absolute Eosinophils 0.1 Absolute Basophils 0.0 Sodium 137.9 Potassium 3.3 L Chloride 103 Carbon Dioxide 24 Anion Gap 11 BUN 20 Creatinine 1.14 Est GFR ( Amer) > 60 Est GFR (Non-Af Amer) > 60 Glucose 135 H Calcium 9.1 Total Bilirubin 0.5 AST 13 L ALT 24 Alkaline Phosphatase 55 Total Protein 5.9 L Albumin 3.2 L Triglycerides 73 Cholesterol 118.45 LDL Cholesterol Direct 52 VLDL Cholesterol 15.0 HDL Cholesterol 40 Impressions: Chest X-Ray 10/08/17 23:46 IMPRESSION: No acute cardiopulmonary findings. Assessment & Plan - Diagnosis (1) Urinary tract infection associated with indwelling urethral catheter Qualifiers: Encounter type: initial encounter Qualified Code(s): T83.511A - Infection and inflammatory reaction due to indwelling urethral catheter, initial encounter ; N39.0 - Urinary tract infection, site not specified; N39.0 - Urinary tract infection, site not specified Is this a current diagnosis for this admission?: Yes Plan: Continue treatment (2) Acute urinary retention Is this a current diagnosis for this admission?: Yes (3) Benign prostate hyperplasia Qualifiers: Lower urinary tract symptom presence: symptoms present Lower urinary tract symptom detail: urinary retention Qualified Code(s): N40.1 - Benign prostatic hyperplasia with lower urinary tract symptoms; R33.8 - Other retention of urine ; R33.8 - Other retention of urine Is this a current diagnosis for this admission?: Yes (4) Type 2 diabetes mellitus with diabetic polyneuropathy Qualifiers: Diabetes mellitus prison insulin use: without local company intermodal truck driver use Qualified Code(s): E11.42 - Type 2 diabetes mellitus with diabetic polyneuropathy Is this a current diagnosis for this admission?: Yes (5) Acute kidney injury Is this a current diagnosis for this admission?: Yes (6) Conjunctival hemorrhage of right eye Is this a current diagnosis for this admission?: Yes
[2017-10-10] MEDS: ATORVASTATIN CALCIUM 40 MG TABLET PO SCH (21:30)
[2017-10-11 05:00] LABS: ABSOLUTE LYMPHOCYTES (AUTO) 0.8 10^3/uL (0.5-4.7); ABSOLUTE MONOCYTES (AUTO) 1.7 10^3/uL (0.1-1.4); ABSOLUTE NEUT (AUTO) 12.3 10^3/uL (1.7-8.2); BASOPHILS % (AUTO) 0.3 % (0-2); EOSINOPHILS % (AUTO) 0.3 % (0-6); HEMATOCRIT 33.6 % (37.9-51.0); HEMOGLOBIN 11.3 g/dL (13.5-17.0); LYMPHOCYTES % (AUTO) 5.5 % (13-45); MEAN CORPUSCULAR HEMOGLOBIN 28.3 pg (27.0-33.4); MEAN CORPUSCULAR HGB CONC 33.7 g/dL (32.0-36.0); MEAN CORPUSCULAR VOLUME 84 fl (80-97); MONOCYTES % (AUTO) 11.6 % (3-13); PLATELET COUNT 141 10^3/uL (150-450); RED CELL DISTRIBUTION WIDTH 13.9 % (11.5-14.0); SEGMENTED NEUTROPHILS % (AUTO) 82.3 % (42-78); TOTAL CELLS COUNTED % (AUTO) 100 %; WHITE BLOOD COUNT 14.9 10^3/uL (4.0-10.5)
[2017-10-11] MEDS: HEPARIN SOD (PORCINE) 5,000 UNIT/ML 1 ML SYRINGE SUBCUT SCH ×3 (05:13→21:31)
[2017-10-11] MEDS: NORMAL SALINE 1000 ML 1,000 ML IV PRN (05:15)
[2017-10-11 05:21] LABS: ALANINE AMINOTRANSFERASE 32 U/L (21-72); ALBUMIN 3.1 g/dL (3.5-5.0); ALKALINE PHOSPHATASE 56 U/L (38-126); ANION GAP 12 (5-19); ASPARTATE AMINO TRANSFERASE 24 U/L (17-59); BILIRUBIN,DIRECT 0.6 mg/dL (0.0-0.4); BILIRUBIN,TOTAL 0.6 mg/dL (0.2-1.3); BLOOD UREA NITROGEN 19 mg/dL (7-20); CALCIUM 9.1 mg/dL (8.4-10.2); CARBON DIOXIDE 23 mmol/L (22-30); CHLORIDE 107 mmol/L (98-107); GLUCOSE 107 mg/dL (75-110); POTASSIUM 3.7 mmol/L (3.6-5.0); SODIUM 141.7 mmol/L (137-145); TOTAL PROTEIN 6.2 g/dL (6.3-8.2)
[2017-10-11] MEDS: METFORMIN HCL 500 MG TABLET PO SCH ×2 (08:33→17:13)
[2017-10-11] MEDS: ACETAMINOPHEN 325 MG TABLET PO PRN ×3 (08:37→18:33)
[2017-10-11] MEDS: TAMSULOSIN HCL 0.4 MG CAP.SR.24H PO SCH (09:43)
[2017-10-11] MEDS: ISOSORBIDE MONONITRATE 60 MG TAB.ER.24H PO SCH (09:43)
[2017-10-11] MEDS: SPIRONOLACTONE 25 MG TABLET PO SCH (09:44)
[2017-10-11] MEDS: HYDROCHLOROTHIAZIDE 25 MG TABLET PO SCH (09:44)
[2017-10-11] MEDS: MULTIVITAMIN TABLET PO SCH (09:44)
[2017-10-11] MEDS: FERROUS SULFATE 325 MG TABLET PO SCH (09:44)
[2017-10-11] MEDS: ERTAPENEM SODIUM 1 GM in NORMAL SALINE 100 ML IV SCH (09:45)
[2017-10-11] MEDS: ASPIRIN 81 MG TABLET, CHEWABLE PO SCH (11:38)
[2017-10-11] MEDS: ATORVASTATIN CALCIUM 40 MG TABLET PO SCH (21:31)
[2017-10-11] MEDS ORDERED: ACETAMINOPHEN 325 MG TABLET PO ONE (22:00)
--- NOTE | 2017-10-11 22:21 | PDOC PROGRESS REPORT ---
Subjective Progress Note for:: 10/11/17 Subjective:: Patient continues to spike temperature, I spoke to the urologist Dr. Alvarez that did the prostate biopsy about his condition. No specific organism is yet cultured from the urine or from the blood, he is empirically on IV antibiotic, the urologist suggested that because he had a large volume of urine collected when the Venegas catheter was inserted he probably will need a Venegas catheter on discharge Reason For Visit: FEVER/SEPSIS Physical Exam Vital Signs: Temp Pulse Resp BP Pulse Ox 102.8 F H 82 16 147/71 H 96 10/11/17 20:02 10/11/17 20:02 10/11/17 20:02 10/11/17 20:02 10/11/17 20:02 Intake & Output 10/10/17 10/11/17 10/12/17 06:59 06:59 06:59 Intake Total 3120 4383 3255 Output Total 450 1600 2050 Balance 2670 2783 1205 Weight 112.5 kg 112.3 kg General appearance: PRESENT: no acute distress Eye exam: PRESENT: PERRLA Respiratory exam: PRESENT: clear to auscultation amanda Cardiovascular exam: PRESENT: +S1, +S2 GI/Abdominal exam: PRESENT: soft Neurological exam: PRESENT: awake Results Laboratory Results: 10/11/17 04:39 10/11/17 04:39 10/11/17 10/11/17 04:39 04:39 WBC 14.9 H RBC 4.00 L Hgb 11.3 L Hct 33.6 L MCV 84 MCH 28.3 MCHC 33.7 RDW 13.9 Plt Count 141 L Seg Neutrophils % 82.3 H Lymphocytes % 5.5 L Monocytes % 11.6 Eosinophils % 0.3 Basophils % 0.3 Absolute Neutrophils 12.3 H Absolute Lymphocytes 0.8 Absolute Monocytes 1.7 H Absolute Eosinophils 0.0 Absolute Basophils 0.0 Sodium 141.7 Potassium 3.7 Chloride 107 Carbon Dioxide 23 Anion Gap 12 BUN 19 Creatinine 1.15 Est GFR ( Amer) > 60 Est GFR (Non-Af Amer) > 60 Glucose 107 Calcium 9.1 Total Bilirubin 0.6 AST 24 ALT 32 Alkaline Phosphatase 56 Total Protein 6.2 L Albumin 3.1 L Impressions: Chest X-Ray 10/08/17 23:46 IMPRESSION: No acute cardiopulmonary findings. Assessment & Plan - Diagnosis (1) Urinary tract infection associated with indwelling urethral catheter Qualifiers: Encounter type: initial encounter Qualified Code(s): T83.511A - Infection and inflammatory reaction due to indwelling urethral catheter, initial encounter ; N39.0 - Urinary tract infection, site not specified; N39.0 - Urinary tract infection, site not specified Is this a current diagnosis for this admission?: Yes Plan: Continue IV antibiotic (2) Acute urinary retention Is this a current diagnosis for this admission?: Yes (3) Benign prostate hyperplasia Qualifiers: Lower urinary tract symptom presence: symptoms present Lower urinary tract symptom detail: urinary retention Qualified Code(s): N40.1 - Benign prostatic hyperplasia with lower urinary tract symptoms; R33.8 - Other retention of urine ; R33.8 - Other retention of urine Is this a current diagnosis for this admission?: Yes (4) Type 2 diabetes mellitus with diabetic polyneuropathy Qualifiers: Diabetes mellitus director long term care insulin use: without director long term care use Qualified Code(s): E11.42 - Type 2 diabetes mellitus with diabetic polyneuropathy Is this a current diagnosis for this admission?: Yes (5) Acute kidney injury Is this a current diagnosis for this admission?: Yes (6) Conjunctival hemorrhage of right eye Is this a current diagnosis for this admission?: Yes
[2017-10-12] MEDS: NORMAL SALINE 1000 ML 1,000 ML IV PRN ×2 (04:33→17:51)
[2017-10-12] MEDS: HEPARIN SOD (PORCINE) 5,000 UNIT/ML 1 ML SYRINGE SUBCUT SCH ×3 (04:33→22:01)
[2017-10-12 05:19] LABS: HEMATOCRIT 33.9 % (37.9-51.0); HEMOGLOBIN 11.8 g/dL (13.5-17.0); MEAN CORPUSCULAR HEMOGLOBIN 28.9 pg (27.0-33.4); MEAN CORPUSCULAR HGB CONC 34.9 g/dL (32.0-36.0); MEAN CORPUSCULAR VOLUME 83 fl (80-97); PLATELET COUNT 184 10^3/uL (150-450); RED BLOOD COUNT 4.08 10^6/uL (4.35-5.55); RED CELL DISTRIBUTION WIDTH 13.9 % (11.5-14.0); WHITE BLOOD COUNT 16.3 10^3/uL (4.0-10.5)
[2017-10-12 05:42] LABS: ALANINE AMINOTRANSFERASE 30 U/L (21-72); ALBUMIN 3.3 g/dL (3.5-5.0); ALKALINE PHOSPHATASE 68 U/L (38-126); ANION GAP 13 (5-19); ASPARTATE AMINO TRANSFERASE 23 U/L (17-59); BILIRUBIN,DIRECT 0.5 mg/dL (0.0-0.4); BILIRUBIN,TOTAL 0.6 mg/dL (0.2-1.3); BLOOD UREA NITROGEN 18 mg/dL (7-20); CALCIUM 9.4 mg/dL (8.4-10.2); CARBON DIOXIDE 24 mmol/L (22-30); CHLORIDE 102 mmol/L (98-107); GLUCOSE 119 mg/dL (75-110); POTASSIUM 3.3 mmol/L (3.6-5.0); SODIUM 139.1 mmol/L (137-145); TOTAL PROTEIN 6.5 g/dL (6.3-8.2)
[2017-10-12 05:44] LABS: ABSOLUTE LYMPHOCYTES# (MANUAL) 0.7 10^3/uL (0.5-4.7); ABSOLUTE MONOCYTES # (MANUAL) 1.8 10^3/uL (0.1-1.4); ABSOLUTE NEUTROPHILS# (MANUAL) 13.7 10^3/uL (1.7-8.2); BASOPHILS % (MANUAL) 0 % (0-2); EOSINOPHILS % (MANUAL) 1 % (0-6); LYMPHOCYTES % (MANUAL) 3 % (13-45); MONOCYTES % (MANUAL) 11 % (3-13); SEGMENTED NEUTROPHILS % (MAN) 84 % (42-78); TOTAL CELLS COUNTED 100
[2017-10-12 05:47] LABS: ANISOCYTOSIS SLIGHT; HELMET CELLS 1+; PLATELET COMMENT ADEQUATE; POIKILOCYTOSIS SLIGHT; SCHISTOCYTES SLIGHT; TEAR DROP CELLS SLIGHT; TOXIC GRANULATION SLIGHT
[2017-10-12] MEDS: METFORMIN HCL 500 MG TABLET PO SCH ×3 (09:11→17:51)
[2017-10-12] MEDS: SPIRONOLACTONE 25 MG TABLET PO SCH (10:40)
[2017-10-12] MEDS: ISOSORBIDE MONONITRATE 60 MG TAB.ER.24H PO SCH (10:41)
[2017-10-12] MEDS: MULTIVITAMIN TABLET PO SCH (10:41)
[2017-10-12] MEDS: TAMSULOSIN HCL 0.4 MG CAP.SR.24H PO SCH (10:41)
[2017-10-12] MEDS: FERROUS SULFATE 325 MG TABLET PO SCH (10:42)
[2017-10-12] MEDS: ERTAPENEM SODIUM 1 GM in NORMAL SALINE 100 ML IV SCH (10:42)
[2017-10-12] MEDS: HYDROCHLOROTHIAZIDE 25 MG TABLET PO SCH (10:42)
--- NOTE | 2017-10-12 10:56 | RADIOLOGY REPORT (SQ) ---
EXAM DESCRIPTION: CT ABD/PELVIS WITH IV ONLY COMPLETED DATE/TIME: 10/12/2017 9:51 am REASON FOR STUDY: SUSPECT PROSTATE /PELVIC ABSCESS COMPARISON: None. TECHNIQUE: CT scan of the abdomen and pelvis performed using helical scanning technique with dynamic intravenous contrast injection. No oral contrast. Images reviewed with lung, soft tissue, and bone windows. Reconstructed coronal and sagittal MPR images reviewed. Delayed images for evaluation of the urinary system also acquired. All images stored on PACS. All CT scanners at this facility use dose modulation, iterative reconstruction, and/or weight based d osing when appropriate to reduce radiation dose to as low as reasonably achievable (ALARA). [facility]: Dose Right [facility]: CareDose [facility]: Dose Right [facility]: Teradose 4D [facility]: WiserTogether CONTRAST TYPE AND DOSE: contrast/concentration: Isovue 370.00 mg/ml; Total Contrast Delivered: 100.0 ml; Total Saline Delivered: 72.0 ml RENAL FUNCTION: Creatinine 1.2 RADIATION DOSE: CT Rad equipment meets quality standard of care and radiation dose reduction techniq ues were employed. CTDIvol: 17.6 - 20.6 mGy. DLP: 3191 mGy-cm.. LIMITATIONS: None. FINDINGS: LOWER CHEST: Tiny bilateral pleural effusions are identified with some minimal associated airspace consolidation most consistent with atelectatic changes. LIVER: Normal size. No masses. No dilated ducts. SPLEEN: Normal size. No focal lesions. PANCREAS: No masses. No significant calcifications. No adjacent inflammation or peripancreatic fluid collections. Pancreatic duct not dilated. GALLBLADDER: No identified stones by CT criteria. No inflammatory changes to suggest cholecystitis. ADRENAL GLANDS: No significant masses or asymmetry. RIGHT KIDNEY AND URETER: No solid masses. No significant calcifications. There is mild hydronephr osis of the right kidney and fullness of the right ureter to the level of the bladder. There is some minimal perinephric soft tissue stranding. LEFT KIDNEY AND URETER: No solid masses. No significant calcifications. There is mild hydronephro sis of the left kidney with fullness of the left ureter to the level of the bladder. There is some m inimal perinephric soft tissue stranding. AORTA AND VESSELS: No aneurysm. No dissection. There is ectasia of the abdominal aorta with vascular calcifications Renal arteries, SMA, celiac without stenosis. RETROPERITONEUM: No retroperitoneal adenopathy, hemorrhage or masses. BOWEL AND PERITONEAL CAVITY: No masses or inflammatory changes. No free fluid or peritoneal masses. APPENDIX: Normal. PELVIS: The bladder is distended with an air-fluid level being identified within the bladder which co uld be related to instrumentation or related to an infectious process. Clinical correlation is recom mended there is enlargement of the prostate gland. A Venegas catheter is identified with the balloon a nd its tip at the level of the prostatic urethra. ABDOMINAL WALL: No masses. No hernias. BONES: No significant or acute findings. OTHER: No other significant finding. IMPRESSION: Venegas catheter is identified with the balloon and its tip at the level of the prostatic urethra. The prostate is enlarged. The bladder is distended with an air-fluid level being identifie d which could be related to instrumentation or related to an infectious process. Clinical correlatio n is recommended. There is mild hydronephrosis of the kidneys and fullness of the ureters extending to the bladder. There is minimal perinephric soft tissue stranding bilaterally. Other findings as n oted above TECHNICAL DOCUMENTATION: JOB ID: [id number] Quality ID # [id number]: Final reports with documentation of one or more dose reduction techniques (e.g., Au tomated exposure control, adjustment of the mA and/or kV according to patient size, use of iterative reconstruction technique) 2010 [email or web address]- All Rights Reserved Reading location - IP/workstation name: [email or web address]
[2017-10-12] MEDS: ASPIRIN 81 MG TABLET, CHEWABLE PO SCH (12:02)
[2017-10-12] MEDS ORDERED: POTASSI CL 20 MEQ/50 ML RIDER 20 MEQ/50 ML RTUPB IV ONE (13:07)
--- NOTE | 2017-10-12 18:43 | PDOC PROGRESS REPORT ---
Subjective Progress Note for:: 10/12/17 Subjective:: Patient had many episodes of fever with temperature 102 , I was concerned about the possibility of perianal abscess or abscess of the prostate gland, CT of the abdomen and pelvis with IV contrast was obtained which showed bilateral mild hydronephrosis of both the left and the right kidney with fullness of the ureter to the level of the bladder. There is some minimal perinephric soft tissue stranding the Venegas catheter was found with the balloon and its tip at the level of the prostatic urethra suggesting that it was not in the bladder itself the Venegas catheter was repositioned today the urinary output improved Reason For Visit: FEVER/SEPSIS Physical Exam Vital Signs: Temp Pulse Resp BP Pulse Ox 98.5 F 74 16 131/62 H 96 10/12/17 15:32 10/12/17 15:32 10/12/17 15:32 10/12/17 15:32 10/12/17 15:32 Intake & Output 10/11/17 10/12/17 10/13/17 06:59 06:59 06:59 Intake Total 4383 4745 2544 Output Total 1600 2050 3000 Balance 2783 2695 -456 Weight 112.3 kg 115.4 kg General appearance: PRESENT: no acute distress, well-developed, well-nourished Head exam: PRESENT: atraumatic, normocephalic Eye exam: PRESENT: conjunctiva pink, EOMI, PERRLA Ear exam: PRESENT: normal external ear exam Mouth exam: PRESENT: moist, tongue midline Neck exam: PRESENT: full ROM Respiratory exam: PRESENT: clear to auscultation amanda Cardiovascular exam: PRESENT: RRR, +S1, +S2 Vascular exam: PRESENT: normal capillary refill GI/Abdominal exam: PRESENT: normal bowel sounds, soft Rectal exam: PRESENT: deferred Neurological exam: PRESENT: alert, awake, oriented to person, oriented to place , oriented to time, oriented to situation, CN II-XII grossly intact Psychiatric exam: PRESENT: appropriate affect, normal mood Skin exam: PRESENT: dry, intact, warm Results Laboratory Results: 10/12/17 04:40 10/12/17 04:40 10/12/17 10/12/17 04:40 04:40 WBC 16.3 H RBC 4.08 L Hgb 11.8 L Hct 33.9 L MCV 83 MCH 28.9 MCHC 34.9 RDW 13.9 Plt Count 184 Seg Neutrophils % Not Reportable Lymphocytes % Not Reportable Monocytes % Not Reportable Eosinophils % Not Reportable Basophils % Not Reportable Absolute Neutrophils Not Reportable Absolute Lymphocytes Not Reportable Absolute Monocytes Not Reportable Absolute Eosinophils Not Reportable Absolute Basophils Not Reportable Sodium 139.1 Potassium 3.3 L Chloride 102 Carbon Dioxide 24 Anion Gap 13 BUN 18 Creatinine 1.22 Est GFR ( Amer) > 60 Est GFR (Non-Af Amer) 59 L Glucose 119 H Calcium 9.4 Total Bilirubin 0.6 AST 23 ALT 30 Alkaline Phosphatase 68 Total Protein 6.5 Albumin 3.3 L Impressions: Chest X-Ray 10/08/17 23:46 IMPRESSION: No acute cardiopulmonary findings. Abdomen/Pelvis CT 10/12/17 00:00 IMPRESSION: Venegas catheter is identified with the balloon and its tip at the level of the prostatic urethra. The prostate is enlarged. The bladder is distended with an air-fluid level being identified which could be related to instrumentation or related to an infectious process. Clinical correlation is recommended. There is mild hydronephrosis of the kidneys and fullness of the ureters extending to the bladder. There is minimal perinephric soft tissue stranding bilaterally. Other findings as noted above Assessment & Plan - Diagnosis (1) Urinary tract infection associated with indwelling urethral catheter Qualifiers: Encounter type: initial encounter Qualified Code(s): T83.511A - Infection and inflammatory reaction due to indwelling urethral catheter, initial encounter ; N39.0 - Urinary tract infection, site not specified; N39.0 - Urinary tract infection, site not specified Is this a current diagnosis for this admission?: Yes (2) Acute urinary retention Is this a current diagnosis for this admission?: Yes (3) Benign prostate hyperplasia Qualifiers: Lower urinary tract symptom presence: symptoms present Lower urinary tract symptom detail: urinary retention Qualified Code(s): N40.1 - Benign prostatic hyperplasia with lower urinary tract symptoms; R33.8 - Other retention of urine ; R33.8 - Other retention of urine Is this a current diagnosis for this admission?: Yes Plan: Start finasteride 5 mg p.o. 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
[2017-10-12] MEDS ORDERED: POTASSIUM CHLORIDE 10 MEQ TABLET.SA PO ONE ×2 (19:00→23:00)
[2017-10-12] MEDS: FINASTERIDE 5 MG TABLET PO SCH (22:01)
[2017-10-12] MEDS: ATORVASTATIN CALCIUM 40 MG TABLET PO SCH (22:01)
[2017-10-13] MEDS: HEPARIN SOD (PORCINE) 5,000 UNIT/ML 1 ML SYRINGE SUBCUT SCH ×3 (06:04→22:21)
[2017-10-13] MEDS: NORMAL SALINE 1000 ML 1,000 ML IV PRN ×2 (06:04→14:04)
[2017-10-13] MEDS: METFORMIN HCL 500 MG TABLET PO SCH ×2 (10:13→15:50)
[2017-10-13] MEDS: FERROUS SULFATE 325 MG TABLET PO SCH (10:14)
[2017-10-13] MEDS: HYDROCHLOROTHIAZIDE 25 MG TABLET PO SCH (10:15)
[2017-10-13] MEDS: ISOSORBIDE MONONITRATE 60 MG TAB.ER.24H PO SCH (10:15)
[2017-10-13] MEDS: ERTAPENEM SODIUM 1 GM in NORMAL SALINE 50 ML IV SCH (10:16)
[2017-10-13] MEDS: TAMSULOSIN HCL 0.4 MG CAP.SR.24H PO SCH (10:16)
[2017-10-13] MEDS: MULTIVITAMIN TABLET PO SCH (10:16)
[2017-10-13] MEDS: SPIRONOLACTONE 25 MG TABLET PO SCH (10:16)
[2017-10-13] MEDS: ASPIRIN 81 MG TABLET, CHEWABLE PO SCH (14:07)
[2017-10-13 14:13] LABS: ABSOLUTE BASOPHILS # (AUTO) 0.1 10^3/uL (0.0-0.2); ABSOLUTE EOSINOPHILS # (AUTO) 0.3 10^3/uL (0.0-0.6); ABSOLUTE LYMPHOCYTES (AUTO) 1.3 10^3/uL (0.5-4.7); ABSOLUTE MONOCYTES (AUTO) 1.4 10^3/uL (0.1-1.4); ABSOLUTE NEUT (AUTO) 6.5 10^3/uL (1.7-8.2); BASOPHILS % (AUTO) 0.6 % (0-2); EOSINOPHILS % (AUTO) 2.9 % (0-6); HEMATOCRIT 31.8 % (37.9-51.0); LYMPHOCYTES % (AUTO) 13.4 % (13-45); MEAN CORPUSCULAR HEMOGLOBIN 28.9 pg (27.0-33.4); MEAN CORPUSCULAR HGB CONC 34.6 g/dL (32.0-36.0); MEAN CORPUSCULAR VOLUME 84 fl (80-97); MONOCYTES % (AUTO) 14.4 % (3-13); PLATELET COUNT 221 10^3/uL (150-450); RED BLOOD COUNT 3.79 10^6/uL (4.35-5.55); RED CELL DISTRIBUTION WIDTH 14.1 % (11.5-14.0); SEGMENTED NEUTROPHILS % (AUTO) 68.7 % (42-78); TOTAL CELLS COUNTED % (AUTO) 100 %; WHITE BLOOD COUNT 9.5 10^3/uL (4.0-10.5)
[2017-10-13 14:31] LABS: ALANINE AMINOTRANSFERASE 31 U/L (21-72); ALBUMIN 3.1 g/dL (3.5-5.0); ALKALINE PHOSPHATASE 63 U/L (38-126); ANION GAP 12 (5-19); ASPARTATE AMINO TRANSFERASE 23 U/L (17-59); BILIRUBIN,DIRECT 0.2 mg/dL (0.0-0.4); BILIRUBIN,TOTAL 0.2 mg/dL (0.2-1.3); BLOOD UREA NITROGEN 19 mg/dL (7-20); CALCIUM 9.3 mg/dL (8.4-10.2); CARBON DIOXIDE 27 mmol/L (22-30); CHLORIDE 106 mmol/L (98-107); GLUCOSE 89 mg/dL (75-110); POTASSIUM 3.5 mmol/L (3.6-5.0); SODIUM 145.2 mmol/L (137-145); TOTAL PROTEIN 5.9 g/dL (6.3-8.2)
[2017-10-13] MEDS: ATORVASTATIN CALCIUM 40 MG TABLET PO SCH (22:21)
[2017-10-13] MEDS: FINASTERIDE 5 MG TABLET PO SCH (22:21)
--- NOTE | 2017-10-13 22:41 | PDOC PROGRESS REPORT ---
Subjective Progress Note for:: 10/13/17 Subjective:: Patient was seen by the bedside this is the first day that he is afebrile Reason For Visit: FEVER/SEPSIS Physical Exam Vital Signs: Temp Pulse Resp BP Pulse Ox 98.5 F 63 18 151/84 H 96 10/13/17 20:30 10/13/17 20:30 10/13/17 20:30 10/13/17 20:30 10/13/17 20:30 Intake & Output 10/12/17 10/13/17 10/14/17 06:59 06:59 06:59 Intake Total 4745 5466 2262 Output Total 2050 5700 1000 Balance 2695 -234 1262 Weight 115.4 kg 111.6 kg General appearance: PRESENT: no acute distress Eye exam: PRESENT: PERRLA Respiratory exam: PRESENT: clear to auscultation amanda Cardiovascular exam: PRESENT: +S1, +S2 GI/Abdominal exam: PRESENT: soft Neurological exam: PRESENT: alert Results Laboratory Results: 10/13/17 14:00 10/13/17 14:00 10/13/17 10/13/17 14:00 14:00 WBC 9.5 RBC 3.79 L Hgb 11.0 L Hct 31.8 L MCV 84 MCH 28.9 MCHC 34.6 RDW 14.1 H Plt Count 221 Seg Neutrophils % 68.7 Lymphocytes % 13.4 Monocytes % 14.4 H Eosinophils % 2.9 Basophils % 0.6 Absolute Neutrophils 6.5 Absolute Lymphocytes 1.3 Absolute Monocytes 1.4 Absolute Eosinophils 0.3 Absolute Basophils 0.1 Sodium 145.2 H Potassium 3.5 L Chloride 106 Carbon Dioxide 27 Anion Gap 12 BUN 19 Creatinine 1.35 H Est GFR ( Amer) > 60 Est GFR (Non-Af Amer) 52 L Glucose 89 Calcium 9.3 Total Bilirubin 0.2 AST 23 ALT 31 Alkaline Phosphatase 63 Total Protein 5.9 L Albumin 3.1 L 10/11/17 21:00 Venegas Catheter Urine Culture - Final NO GROWTH 2 DAYS Impressions: Chest X-Ray 10/08/17 23:46 IMPRESSION: No acute cardiopulmonary findings. Abdomen/Pelvis CT 10/12/17 00:00 IMPRESSION: Venegas catheter is identified with the balloon and its tip at the level of the prostatic urethra. The prostate is enlarged. The bladder is distended with an air-fluid level being identified which could be related to instrumentation or related to an infectious process. Clinical correlation is recommended. There is mild hydronephrosis of the kidneys and fullness of the ureters extending to the bladder. There is minimal perinephric soft tissue stranding bilaterally. Other findings as noted above Assessment & Plan - Diagnosis (1) Urinary tract infection associated with indwelling urethral catheter Qualifiers: Encounter type: initial encounter Qualified Code(s): T83.511A - Infection and inflammatory reaction due to indwelling urethral catheter, initial encounter ; N39.0 - Urinary tract infection, site not specified; N39.0 - Urinary tract infection, site not specified Is this a current diagnosis for this admission?: Yes (2) Acute urinary retention Is this a current diagnosis for this admission?: Yes (3) Benign prostate hyperplasia Qualifiers: Lower urinary tract symptom presence: symptoms present Lower urinary tract symptom detail: urinary retention Qualified Code(s): N40.1 - Benign prostatic hyperplasia with lower urinary tract symptoms; R33.8 - Other retention of urine ; R33.8 - Other retention of urine Is this a current diagnosis for this admission?: Yes (4) Type 2 diabetes mellitus with diabetic polyneuropathy Qualifiers: Diabetes mellitus superintendent terminal insulin use: without superintendent terminal use Qualified Code(s): E11.42 - Type 2 diabetes mellitus with diabetic polyneuropathy Is this a current diagnosis for this admission?: Yes (5) Acute kidney injury Is this a current diagnosis for this admission?: Yes (6) Conjunctival hemorrhage of right eye Is this a current diagnosis for this admission?: Yes (7) Bilateral hydronephrosis Is this a current diagnosis for this admission?: Yes - Plan Summary Plan Summary: Continue treatment
[2017-10-14 06:42] LABS: ABSOLUTE BASOPHILS # (AUTO) 0.1 10^3/uL (0.0-0.2); ABSOLUTE EOSINOPHILS # (AUTO) 0.3 10^3/uL (0.0-0.6); ABSOLUTE LYMPHOCYTES (AUTO) 1.6 10^3/uL (0.5-4.7); ABSOLUTE MONOCYTES (AUTO) 1.5 10^3/uL (0.1-1.4); ABSOLUTE NEUT (AUTO) 6.4 10^3/uL (1.7-8.2); BASOPHILS % (AUTO) 0.8 % (0-2); EOSINOPHILS % (AUTO) 3.1 % (0-6); HEMOGLOBIN 11.1 g/dL (13.5-17.0); LYMPHOCYTES % (AUTO) 16.4 % (13-45); MEAN CORPUSCULAR HEMOGLOBIN 28.3 pg (27.0-33.4); MEAN CORPUSCULAR HGB CONC 33.8 g/dL (32.0-36.0); MEAN CORPUSCULAR VOLUME 84 fl (80-97); MONOCYTES % (AUTO) 15.1 % (3-13); PLATELET COUNT 236 10^3/uL (150-450); RED BLOOD COUNT 3.93 10^6/uL (4.35-5.55); RED CELL DISTRIBUTION WIDTH 14.3 % (11.5-14.0); SEGMENTED NEUTROPHILS % (AUTO) 64.6 % (42-78); TOTAL CELLS COUNTED % (AUTO) 100 %; WHITE BLOOD COUNT 9.9 10^3/uL (4.0-10.5)
[2017-10-14] MEDS: HEPARIN SOD (PORCINE) 5,000 UNIT/ML 1 ML SYRINGE SUBCUT SCH ×3 (06:50→22:12)
[2017-10-14 06:55] LABS: ALANINE AMINOTRANSFERASE 38 U/L (21-72); ALBUMIN 3.1 g/dL (3.5-5.0); ALKALINE PHOSPHATASE 57 U/L (38-126); ANION GAP 13 (5-19); ASPARTATE AMINO TRANSFERASE 25 U/L (17-59); BILIRUBIN,DIRECT 0.3 mg/dL (0.0-0.4); BILIRUBIN,TOTAL 0.3 mg/dL (0.2-1.3); BLOOD UREA NITROGEN 20 mg/dL (7-20); CALCIUM 9.2 mg/dL (8.4-10.2); CARBON DIOXIDE 27 mmol/L (22-30); CHLORIDE 105 mmol/L (98-107); GLUCOSE 88 mg/dL (75-110); SODIUM 144.8 mmol/L (137-145); TOTAL PROTEIN 6.2 g/dL (6.3-8.2)
[2017-10-14] MEDS: HYDROCHLOROTHIAZIDE 25 MG TABLET PO SCH (09:50)
[2017-10-14] MEDS: SPIRONOLACTONE 25 MG TABLET PO SCH (09:51)
[2017-10-14] MEDS: TAMSULOSIN HCL 0.4 MG CAP.SR.24H PO SCH (09:51)
[2017-10-14] MEDS: MULTIVITAMIN TABLET PO SCH (09:51)
[2017-10-14] MEDS: FERROUS SULFATE 325 MG TABLET PO SCH (09:51)
[2017-10-14] MEDS: ISOSORBIDE MONONITRATE 60 MG TAB.ER.24H PO SCH (09:51)
[2017-10-14] MEDS: METFORMIN HCL 500 MG TABLET PO SCH ×2 (09:52→16:50)
[2017-10-14] MEDS: ERTAPENEM SODIUM 1 GM in NORMAL SALINE 50 ML IV SCH (10:00)
[2017-10-14] MEDS: ASPIRIN 81 MG TABLET, CHEWABLE PO SCH (12:58)
[2017-10-14] MEDS: NORMAL SALINE 1000 ML 1,000 ML IV PRN (12:58)
--- NOTE | 2017-10-14 14:43 | Progress Note ---
Provider Note Provider Note: ID Consult Note- I was asked to review this patient's chart by Pharmacy. I reviewed the admission note, progress notes, and culture results. Patient was admitted with suspected urosepsis following prostate biopsy. Blood and urine cultures are negative. The patient is clinically improved. He has been receiving ertapenem, which was given empirically. Given negative blood and urine cultures and unremarkable urinalysis on admission (1 WBC), recommend discontinuing ertapenem. I see no reason to continue any antibiotics in this particular case. Please contact me if there are questions. Miki Casey MD Pager: [phone]
[2017-10-14] MEDS: ATORVASTATIN CALCIUM 40 MG TABLET PO SCH (22:12)
[2017-10-14] MEDS: FINASTERIDE 5 MG TABLET PO SCH (22:12)
--- NOTE | 2017-10-14 23:14 | PDOC PROGRESS REPORT ---
Subjective Progress Note for:: 10/14/17 Subjective:: Patient was seen by the bedside, the urine was somewhat bloody today does not seems to be traumatic in nature, etiology is not clear, presently on antibiotic empirically, no more fevers, white blood cell is down suggesting improvement because the urine is bloody we will continue antibiotic for a few more days Reason For Visit: FEVER/SEPSIS Physical Exam Vital Signs: Temp Pulse Resp BP Pulse Ox 97.7 F 70 18 150/87 H 95 10/14/17 19:57 10/14/17 19:57 10/14/17 19:57 10/14/17 19:57 10/14/17 19:57 Intake & Output 10/13/17 10/14/17 10/15/17 06:59 06:59 06:59 Intake Total 5469 3262 2402 Output Total 5700 3600 1999 Balance -234 -338 402 Weight 111.6 kg 117.5 kg General appearance: PRESENT: no acute distress Eye exam: PRESENT: PERRLA Cardiovascular exam: PRESENT: +S1, +S2 GI/Abdominal exam: PRESENT: soft Neurological exam: PRESENT: alert Results Laboratory Results: 10/14/17 05:07 10/14/17 05:07 10/14/17 10/14/17 05:07 05:07 WBC 9.9 RBC 3.93 L Hgb 11.1 L Hct 33.0 L MCV 84 MCH 28.3 MCHC 33.8 RDW 14.3 H Plt Count 236 Seg Neutrophils % 64.6 Lymphocytes % 16.4 Monocytes % 15.1 H Eosinophils % 3.1 Basophils % 0.8 Absolute Neutrophils 6.4 Absolute Lymphocytes 1.6 Absolute Monocytes 1.5 H Absolute Eosinophils 0.3 Absolute Basophils 0.1 Sodium 144.8 Potassium 4.0 Chloride 105 Carbon Dioxide 27 Anion Gap 13 BUN 20 Creatinine 1.20 Est GFR ( Amer) > 60 Est GFR (Non-Af Amer) > 60 Glucose 88 Calcium 9.2 Total Bilirubin 0.3 AST 25 ALT 38 Alkaline Phosphatase 57 Total Protein 6.2 L Albumin 3.1 L Impressions: Chest X-Ray 10/08/17 23:46 IMPRESSION: No acute cardiopulmonary findings. Abdomen/Pelvis CT 10/12/17 00:00 IMPRESSION: Venegas catheter is identified with the balloon and its tip at the level of the prostatic urethra. The prostate is enlarged. The bladder is distended with an air-fluid level being identified which could be related to instrumentation or related to an infectious process. Clinical correlation is recommended. There is mild hydronephrosis of the kidneys and fullness of the ureters extending to the bladder. There is minimal perinephric soft tissue stranding bilaterally. Other findings as noted above Assessment & Plan - Diagnosis (1) Urinary tract infection associated with indwelling urethral catheter Qualifiers: Encounter type: initial encounter Qualified Code(s): T83.511A - Infection and inflammatory reaction due to indwelling urethral catheter, initial encounter ; N39.0 - Urinary tract infection, site not specified; N39.0 - Urinary tract infection, site not specified Is this a current diagnosis for this admission?: Yes (2) Acute urinary retention Is this a current diagnosis for this admission?: Yes (3) Benign prostate hyperplasia Qualifiers: Lower urinary tract symptom presence: symptoms present Lower urinary tract symptom detail: urinary retention Qualified Code(s): N40.1 - Benign prostatic hyperplasia with lower urinary tract symptoms; R33.8 - Other retention of urine ; R33.8 - Other retention of urine Is this a current diagnosis for this admission?: Yes (4) Type 2 diabetes mellitus with diabetic polyneuropathy Qualifiers: Diabetes mellitus long-term insulin use: without termite control technician use Qualified Code(s): E11.42 - Type 2 diabetes mellitus with diabetic polyneuropathy Is this a current diagnosis for this admission?: Yes (5) Acute kidney injury Is this a current diagnosis for this admission?: Yes (6) Conjunctival hemorrhage of right eye Is this a current diagnosis for this admission?: Yes (7) Bilateral hydronephrosis Is this a current diagnosis for this admission?: Yes (8) Hematuria Qualifiers: Hematuria type: unspecified type Qualified Code(s): R31.9 - Hematuria, unspecified Is this a current diagnosis for this admission?: Yes
[2017-10-15] MEDS: HEPARIN SOD (PORCINE) 5,000 UNIT/ML 1 ML SYRINGE SUBCUT SCH ×3 (06:19→22:30)
[2017-10-15] MEDS: METFORMIN HCL 500 MG TABLET PO SCH ×2 (08:22→15:07)
[2017-10-15] MEDS: MULTIVITAMIN TABLET PO SCH (08:22)
[2017-10-15] MEDS: SPIRONOLACTONE 25 MG TABLET PO SCH (08:23)
[2017-10-15] MEDS: ISOSORBIDE MONONITRATE 60 MG TAB.ER.24H PO SCH (08:23)
[2017-10-15] MEDS: HYDROCHLOROTHIAZIDE 25 MG TABLET PO SCH (08:24)
[2017-10-15] MEDS: FERROUS SULFATE 325 MG TABLET PO SCH (08:24)
[2017-10-15] MEDS: TAMSULOSIN HCL 0.4 MG CAP.SR.24H PO SCH (08:25)
[2017-10-15 09:29] LABS: ABSOLUTE BASOPHILS # (AUTO) 0.1 10^3/uL (0.0-0.2); ABSOLUTE EOSINOPHILS # (AUTO) 0.3 10^3/uL (0.0-0.6); ABSOLUTE LYMPHOCYTES (AUTO) 1.4 10^3/uL (0.5-4.7); ABSOLUTE MONOCYTES (AUTO) 1.1 10^3/uL (0.1-1.4); ABSOLUTE NEUT (AUTO) 8.4 10^3/uL (1.7-8.2); BASOPHILS % (AUTO) 0.5 % (0-2); EOSINOPHILS % (AUTO) 2.3 % (0-6); HEMATOCRIT 33.3 % (37.9-51.0); HEMOGLOBIN 11.2 g/dL (13.5-17.0); LYMPHOCYTES % (AUTO) 12.3 % (13-45); MEAN CORPUSCULAR HEMOGLOBIN 28.2 pg (27.0-33.4); MEAN CORPUSCULAR HGB CONC 33.7 g/dL (32.0-36.0); MEAN CORPUSCULAR VOLUME 84 fl (80-97); MONOCYTES % (AUTO) 10.1 % (3-13); PLATELET COUNT 273 10^3/uL (150-450); RED BLOOD COUNT 3.98 10^6/uL (4.35-5.55); RED CELL DISTRIBUTION WIDTH 13.8 % (11.5-14.0); SEGMENTED NEUTROPHILS % (AUTO) 74.8 % (42-78); TOTAL CELLS COUNTED % (AUTO) 100 %; WHITE BLOOD COUNT 11.2 10^3/uL (4.0-10.5)
[2017-10-15] MEDS ORDERED: NORMAL SALINE 1000 ML 1,000 ML IV PRN (09:31)
[2017-10-15 09:40] LABS: ALANINE AMINOTRANSFERASE 61 U/L (21-72); ALBUMIN 3.2 g/dL (3.5-5.0); ALKALINE PHOSPHATASE 66 U/L (38-126); ANION GAP 13 (5-19); ASPARTATE AMINO TRANSFERASE 50 U/L (17-59); BILIRUBIN,DIRECT 0.3 mg/dL (0.0-0.4); BILIRUBIN,TOTAL 0.3 mg/dL (0.2-1.3); BLOOD UREA NITROGEN 19 mg/dL (7-20); CALCIUM 9.3 mg/dL (8.4-10.2); CARBON DIOXIDE 26 mmol/L (22-30); CHLORIDE 106 mmol/L (98-107); GLUCOSE 94 mg/dL (75-110); SODIUM 144.8 mmol/L (137-145); TOTAL PROTEIN 6.5 g/dL (6.3-8.2)
--- NOTE | 2017-10-15 11:12 | PDOC PROGRESS REPORT ---
Subjective Progress Note for:: 10/15/17 Subjective:: Patient was admitted because of the status post prostate biopsy patient have a hematuria and UTI Currently doing well Venegas catheter there is no blood seen Patient's blood pressure was elevated Since denied any chest pain denied any shortness of the breath No headache Reason For Visit: FEVER/SEPSIS Physical Exam Vital Signs: Temp Pulse Resp BP Pulse Ox 98.8 F 70 16 173/90 H 95 10/15/17 08:00 10/15/17 08:00 10/15/17 08:00 10/15/17 08:00 10/15/17 08:00 Intake & Output 10/14/17 10/15/17 10/16/17 06:59 06:59 06:59 Intake Total 3262 4602 Output Total 3604 5768 Balance -338 -1123 Weight 117.5 kg 117.2 kg General appearance: PRESENT: no acute distress, well-developed, well-nourished Head exam: PRESENT: atraumatic, normocephalic Eye exam: PRESENT: conjunctiva pink, EOMI, PERRLA. ABSENT: scleral icterus Ear exam: PRESENT: normal external ear exam Mouth exam: PRESENT: moist, tongue midline Neck exam: PRESENT: full ROM. ABSENT: carotid bruit, JVD, lymphadenopathy, thyromegaly Respiratory exam: PRESENT: clear to auscultation amanda Cardiovascular exam: PRESENT: RRR. ABSENT: diastolic murmur, rubs, systolic murmur Pulses: PRESENT: normal dorsalis pedis pul, +2 pedal pulses bilateral Vascular exam: PRESENT: normal capillary refill GI/Abdominal exam: PRESENT: normal bowel sounds, soft. ABSENT: distended, guarding, mass, organolmegaly, rebound, tenderness Rectal exam: PRESENT: deferred Extremities exam: ABSENT: pedal edema Musculoskeletal exam: PRESENT: ambulatory Neurological exam: PRESENT: alert, awake, oriented to person, oriented to place , oriented to time, oriented to situation, CN II-XII grossly intact. ABSENT: motor sensory deficit Psychiatric exam: PRESENT: appropriate affect, normal mood. ABSENT: homicidal ideation, suicidal ideation Skin exam: PRESENT: dry, intact, warm. ABSENT: cyanosis, rash Results Laboratory Results: 10/15/17 09:03 10/15/17 09:03 10/15/17 10/15/17 09:03 09:03 WBC 11.2 H RBC 3.98 L Hgb 11.2 L Hct 33.3 L MCV 84 MCH 28.2 MCHC 33.7 RDW 13.8 Plt Count 273 Seg Neutrophils % 74.8 Lymphocytes % 12.3 L Monocytes % 10.1 Eosinophils % 2.3 Basophils % 0.5 Absolute Neutrophils 8.4 H Absolute Lymphocytes 1.4 Absolute Monocytes 1.1 Absolute Eosinophils 0.3 Absolute Basophils 0.1 Sodium 144.8 Potassium 4.0 Chloride 106 Carbon Dioxide 26 Anion Gap 13 BUN 19 Creatinine 1.12 Est GFR ( Amer) > 60 Est GFR (Non-Af Amer) > 60 Glucose 94 Calcium 9.3 Total Bilirubin 0.3 AST 50 ALT 61 Alkaline Phosphatase 66 Total Protein 6.5 Albumin 3.2 L Impressions: Chest X-Ray 10/08/17 23:46 IMPRESSION: No acute cardiopulmonary findings. Abdomen/Pelvis CT 10/12/17 00:00 IMPRESSION: Venegas catheter is identified with the balloon and its tip at the level of the prostatic urethra. The prostate is enlarged. The bladder is distended with an air-fluid level being identified which could be related to instrumentation or related to an infectious process. Clinical correlation is recommended. There is mild hydronephrosis of the kidneys and fullness of the ureters extending to the bladder. There is minimal perinephric soft tissue stranding bilaterally. Other findings as noted above Assessment & Plan - Diagnosis (1) Acute kidney injury Is this a current diagnosis for this admission?: Yes (2) Benign prostate hyperplasia Qualifiers: Lower urinary tract symptom presence: symptoms present Lower urinary tract symptom detail: urinary retention Qualified Code(s): N40.1 - Benign prostatic hyperplasia with lower urinary tract symptoms; R33.8 - Other retention of urine ; R33.8 - Other retention of urine Is this a current diagnosis for this admission?: Yes (3) Bilateral hydronephrosis Is this a current diagnosis for this admission?: Yes (4) Hematuria Qualifiers: Hematuria type: unspecified type Qualified Code(s): R31.9 - Hematuria, unspecified Is this a current diagnosis for this admission?: Yes (5) Type 2 diabetes mellitus with diabetic polyneuropathy Qualifiers: Diabetes mellitus talent acquisition specialist insulin use: without talent acquisition specialist use Qualified Code(s): E11.42 - Type 2 diabetes mellitus with diabetic polyneuropathy Is this a current diagnosis for this admission?: Yes - Time Time Spent with patient: 15-24 minutes Medications reviewed and adjusted accordingly: Yes Anticipated discharge: Other Within: Other - Inpatient Certification Medical Necessity: Significant Comorbidiites Make Outpatient Treatment Too Risky , Need Close Monitoring Due to Risk of Patient Decompensation, Need For IV Fluids, Need for IV Antibiotics Post Hospital Care: D/C Certified Ski Patroller Documentation - Plan Summary Plan Summary: IV antibiotic continues IV fluid adjust a blood pressure medications
[2017-10-15] MEDS: DOCUSATE SODIUM 100 MG CAPSULE PO SCH ×2 (11:19→17:01)
[2017-10-15] MEDS: ASPIRIN 81 MG TABLET, CHEWABLE PO SCH (11:19)
[2017-10-15] MEDS: ERTAPENEM SODIUM 1 GM in NORMAL SALINE 50 ML IV SCH (11:20)
[2017-10-15] MEDS ORDERED: AMLODIPINE BESYLATE 5 MG TABLET PO ONE (12:00)
[2017-10-15] MEDS: ATORVASTATIN CALCIUM 40 MG TABLET PO SCH (22:30)
[2017-10-15] MEDS: FINASTERIDE 5 MG TABLET PO SCH (22:30)
[2017-10-16] MEDS: HEPARIN SOD (PORCINE) 5,000 UNIT/ML 1 ML SYRINGE SUBCUT SCH ×3 (05:56→22:16)
[2017-10-16 06:28] LABS: HEMATOCRIT 33.3 % (37.9-51.0); HEMOGLOBIN 11.3 g/dL (13.5-17.0); MEAN CORPUSCULAR HEMOGLOBIN 28.2 pg (27.0-33.4); MEAN CORPUSCULAR HGB CONC 33.9 g/dL (32.0-36.0); MEAN CORPUSCULAR VOLUME 83 fl (80-97); PLATELET COUNT 298 10^3/uL (150-450); RED CELL DISTRIBUTION WIDTH 14.2 % (11.5-14.0); WHITE BLOOD COUNT 12.1 10^3/uL (4.0-10.5)
[2017-10-16 06:55] LABS: ALANINE AMINOTRANSFERASE 82 U/L (21-72); ALBUMIN 3.2 g/dL (3.5-5.0); ALKALINE PHOSPHATASE 64 U/L (38-126); ANION GAP 13 (5-19); ASPARTATE AMINO TRANSFERASE 64 U/L (17-59); BILIRUBIN,DIRECT 0.2 mg/dL (0.0-0.4); BILIRUBIN,TOTAL 0.2 mg/dL (0.2-1.3); BLOOD UREA NITROGEN 22 mg/dL (7-20); CALCIUM 9.4 mg/dL (8.4-10.2); CARBON DIOXIDE 25 mmol/L (22-30); CHLORIDE 106 mmol/L (98-107); GLUCOSE 100 mg/dL (75-110); POTASSIUM 4.2 mmol/L (3.6-5.0); SODIUM 144.2 mmol/L (137-145); TOTAL PROTEIN 6.5 g/dL (6.3-8.2)
[2017-10-16 06:58] LABS: ABSOLUTE LYMPHOCYTES# (MANUAL) 1.3 10^3/uL (0.5-4.7); ABSOLUTE MONOCYTES # (MANUAL) 0.7 10^3/uL (0.1-1.4); ABSOLUTE NEUTROPHILS# (MANUAL) 9.6 10^3/uL (1.7-8.2); BAND NEUTROPHILS % (MANUAL) 2 % (3-5); BASOPHILS % (MANUAL) 0 % (0-2); EOSINOPHILS % (MANUAL) 4 % (0-6); LYMPHOCYTES % (MANUAL) 11 % (13-45); MONOCYTES % (MANUAL) 6 % (3-13); SEGMENTED NEUTROPHILS % (MAN) 77 % (42-78); TOTAL CELLS COUNTED 100
[2017-10-16 07:00] LABS: ANISOCYTOSIS SLIGHT; BURR CELLS SLIGHT; OVALOCYTES SLIGHT; POIKILOCYTOSIS 1+; TOXIC GRANULATION SLIGHT
[2017-10-16 07:01] LABS: PLATELET COMMENT ADEQUATE
[2017-10-16] MEDS: METFORMIN HCL 500 MG TABLET PO SCH ×2 (07:55→16:38)
[2017-10-16] MEDS: SPIRONOLACTONE 25 MG TABLET PO SCH (08:04)
[2017-10-16] MEDS: ISOSORBIDE MONONITRATE 60 MG TAB.ER.24H PO SCH (08:04)
[2017-10-16] MEDS: HYDROCHLOROTHIAZIDE 25 MG TABLET PO SCH (08:05)
[2017-10-16] MEDS: MULTIVITAMIN TABLET PO SCH (08:05)
[2017-10-16] MEDS: AMLODIPINE BESYLATE 5 MG TABLET PO SCH (08:05)
[2017-10-16] MEDS: DOCUSATE SODIUM 100 MG CAPSULE PO SCH ×2 (08:06→16:38)
[2017-10-16] MEDS: TAMSULOSIN HCL 0.4 MG CAP.SR.24H PO SCH (08:06)
--- NOTE | 2017-10-16 10:33 | PDOC PROGRESS REPORT ---
Subjective Progress Note for:: 10/16/17 Subjective:: Patient is feeling much better pt did not having no blood in the catheter No fever no chills Reason For Visit: FEVER/SEPSIS Physical Exam Vital Signs: Temp Pulse Resp BP Pulse Ox 98.5 F 63 16 169/83 H 94 10/16/17 08:00 10/16/17 08:00 10/16/17 08:00 10/16/17 08:00 10/16/17 08:00 Intake & Output 10/15/17 10/16/17 10/17/17 06:59 06:59 06:59 Intake Total 4602 5402 Output Total 5753 6300 Balance -1123 -898 Weight 117.2 kg 117.2 kg General appearance: PRESENT: no acute distress, well-developed, well-nourished Head exam: PRESENT: atraumatic, normocephalic Eye exam: PRESENT: conjunctiva pink, EOMI, PERRLA. ABSENT: scleral icterus Ear exam: PRESENT: normal external ear exam Mouth exam: PRESENT: moist, tongue midline Neck exam: PRESENT: full ROM. ABSENT: carotid bruit, JVD, lymphadenopathy, thyromegaly Respiratory exam: PRESENT: clear to auscultation amanda Cardiovascular exam: PRESENT: RRR. ABSENT: diastolic murmur, rubs, systolic murmur Pulses: PRESENT: normal dorsalis pedis pul, +2 pedal pulses bilateral Vascular exam: PRESENT: normal capillary refill GI/Abdominal exam: PRESENT: normal bowel sounds, soft. ABSENT: distended, guarding, mass, organolmegaly, rebound, tenderness Rectal exam: PRESENT: deferred Extremities exam: ABSENT: pedal edema Neurological exam: PRESENT: alert, awake, oriented to person, oriented to place , oriented to time, oriented to situation, CN II-XII grossly intact. ABSENT: motor sensory deficit Psychiatric exam: PRESENT: appropriate affect, normal mood. ABSENT: homicidal ideation, suicidal ideation Skin exam: PRESENT: dry, intact, warm. ABSENT: cyanosis, rash Results Laboratory Results: 10/16/17 06:15 10/16/17 06:15 10/16/17 10/16/17 06:15 06:15 WBC 12.1 H RBC 4.00 L Hgb 11.3 L Hct 33.3 L MCV 83 MCH 28.2 MCHC 33.9 RDW 14.2 H Plt Count 298 Seg Neutrophils % Not Reportable Lymphocytes % Not Reportable Monocytes % Not Reportable Eosinophils % Not Reportable Basophils % Not Reportable Absolute Neutrophils Not Reportable Absolute Lymphocytes Not Reportable Absolute Monocytes Not Reportable Absolute Eosinophils Not Reportable Absolute Basophils Not Reportable Sodium 144.2 Potassium 4.2 Chloride 106 Carbon Dioxide 25 Anion Gap 13 BUN 22 H Creatinine 1.11 Est GFR ( Amer) > 60 Est GFR (Non-Af Amer) > 60 Glucose 100 Calcium 9.4 Total Bilirubin 0.2 AST 64 H ALT 82 H Alkaline Phosphatase 64 Total Protein 6.5 Albumin 3.2 L Impressions: Chest X-Ray 10/08/17 23:46 IMPRESSION: No acute cardiopulmonary findings. Abdomen/Pelvis CT 10/12/17 00:00 IMPRESSION: Venegas catheter is identified with the balloon and its tip at the level of the prostatic urethra. The prostate is enlarged. The bladder is distended with an air-fluid level being identified which could be related to instrumentation or related to an infectious process. Clinical correlation is recommended. There is mild hydronephrosis of the kidneys and fullness of the ureters extending to the bladder. There is minimal perinephric soft tissue stranding bilaterally. Other findings as noted above Assessment & Plan - Diagnosis (1) Acute kidney injury Is this a current diagnosis for this admission?: Yes (2) Benign prostate hyperplasia Qualifiers: Lower urinary tract symptom presence: symptoms present Lower urinary tract symptom detail: urinary retention Qualified Code(s): N40.1 - Benign prostatic hyperplasia with lower urinary tract symptoms; R33.8 - Other retention of urine ; R33.8 - Other retention of urine Is this a current diagnosis for this admission?: Yes (3) Bilateral hydronephrosis Is this a current diagnosis for this admission?: Yes (4) Hematuria Qualifiers: Hematuria type: unspecified type Qualified Code(s): R31.9 - Hematuria, unspecified Is this a current diagnosis for this admission?: Yes (5) Type 2 diabetes mellitus with diabetic polyneuropathy Qualifiers: Diabetes mellitus fpc insulin use: without dedicated intermodal truck driver use Qualified Code(s): E11.42 - Type 2 diabetes mellitus with diabetic polyneuropathy Is this a current diagnosis for this admission?: Yes - Time Time Spent with patient: 15-24 minutes Medications reviewed and adjusted accordingly: Yes Anticipated discharge: Home Within: Other - Inpatient Certification Medical Necessity: Need Close Monitoring Due to Risk of Patient Decompensation Post Hospital Care: D/C Materials Associate Documentation - Plan Summary Plan Summary: I think patient is doing better with the hematuria was and no hematuria
[2017-10-16] MEDS: ERTAPENEM SODIUM 1 GM in NORMAL SALINE 50 ML IV SCH (11:00)
[2017-10-16] MEDS: FERROUS SULFATE 325 MG TABLET PO SCH (11:01)
[2017-10-16] MEDS: ASPIRIN 81 MG TABLET, CHEWABLE PO SCH (12:00)
[2017-10-16] MEDS: FINASTERIDE 5 MG TABLET PO SCH (22:15)
[2017-10-16] MEDS: ATORVASTATIN CALCIUM 40 MG TABLET PO SCH (22:16)
[2017-10-17] MEDS: HEPARIN SOD (PORCINE) 5,000 UNIT/ML 1 ML SYRINGE SUBCUT SCH ×3 (05:01→21:28)
[2017-10-17] MEDS: MULTIVITAMIN TABLET PO SCH (09:50)
[2017-10-17] MEDS: ISOSORBIDE MONONITRATE 60 MG TAB.ER.24H PO SCH (09:50)
[2017-10-17] MEDS: METFORMIN HCL 500 MG TABLET PO SCH ×2 (09:50→16:54)
[2017-10-17] MEDS: TAMSULOSIN HCL 0.4 MG CAP.SR.24H PO SCH (09:53)
[2017-10-17] MEDS: AMLODIPINE BESYLATE 5 MG TABLET PO SCH (09:54)
[2017-10-17] MEDS: HYDROCHLOROTHIAZIDE 25 MG TABLET PO SCH (09:55)
[2017-10-17] MEDS: SPIRONOLACTONE 25 MG TABLET PO SCH (09:55)
[2017-10-17] MEDS: DOCUSATE SODIUM 100 MG CAPSULE PO SCH ×2 (09:56→17:40)
[2017-10-17] MEDS: FERROUS SULFATE 325 MG TABLET PO SCH (09:57)
[2017-10-17] MEDS: ASPIRIN 81 MG TABLET, CHEWABLE PO SCH (15:01)
[2017-10-17] MEDS: ERTAPENEM SODIUM 1 GM in NORMAL SALINE 50 ML IV SCH (15:02)
[2017-10-17 15:06] LABS: ABSOLUTE EOSINOPHILS # (AUTO) 0.2 10^3/uL (0.0-0.6); ABSOLUTE LYMPHOCYTES (AUTO) 1.5 10^3/uL (0.5-4.7); ABSOLUTE MONOCYTES (AUTO) 0.7 10^3/uL (0.1-1.4); ABSOLUTE NEUT (AUTO) 7.8 10^3/uL (1.7-8.2); BASOPHILS % (AUTO) 0.3 % (0-2); EOSINOPHILS % (AUTO) 2.2 % (0-6); HEMATOCRIT 32.5 % (37.9-51.0); HEMOGLOBIN 10.9 g/dL (13.5-17.0); LYMPHOCYTES % (AUTO) 14.6 % (13-45); MEAN CORPUSCULAR HEMOGLOBIN 28.2 pg (27.0-33.4); MEAN CORPUSCULAR HGB CONC 33.7 g/dL (32.0-36.0); MEAN CORPUSCULAR VOLUME 84 fl (80-97); MONOCYTES % (AUTO) 6.9 % (3-13); PLATELET COUNT 315 10^3/uL (150-450); RED BLOOD COUNT 3.88 10^6/uL (4.35-5.55); RED CELL DISTRIBUTION WIDTH 14.1 % (11.5-14.0); TOTAL CELLS COUNTED % (AUTO) 100 %; WHITE BLOOD COUNT 10.3 10^3/uL (4.0-10.5)
[2017-10-17 15:27] LABS: ALANINE AMINOTRANSFERASE 118 U/L (21-72); ALBUMIN 3.1 g/dL (3.5-5.0); ALKALINE PHOSPHATASE 59 U/L (38-126); ANION GAP 13 (5-19); ASPARTATE AMINO TRANSFERASE 91 U/L (17-59); BILIRUBIN,DIRECT 0.1 mg/dL (0.0-0.4); BILIRUBIN,TOTAL 0.1 mg/dL (0.2-1.3); BLOOD UREA NITROGEN 21 mg/dL (7-20); CALCIUM 9.2 mg/dL (8.4-10.2); CARBON DIOXIDE 28 mmol/L (22-30); CHLORIDE 103 mmol/L (98-107); GLUCOSE 106 mg/dL (75-110); POTASSIUM 4.1 mmol/L (3.6-5.0); SODIUM 143.9 mmol/L (137-145); TOTAL PROTEIN 6.3 g/dL (6.3-8.2)
--- NOTE | 2017-10-17 21:18 | PDOC DISCHARGE SUMMARY ---
General - Admit/Disc Date/PCP Admission Date/Primary Care Provider: 10/09/17 00:54 TERESA MISTRY MD Discharge Date: 10/17/17 - Discharge Diagnosis (1) Urinary tract infection associated with indwelling urethral catheter Is this a current diagnosis for this admission?: Yes (2) Acute urinary retention Is this a current diagnosis for this admission?: Yes (3) Benign prostate hyperplasia Is this a current diagnosis for this admission?: Yes (4) Type 2 diabetes mellitus with diabetic polyneuropathy Is this a current diagnosis for this admission?: Yes (5) Acute kidney injury Is this a current diagnosis for this admission?: Yes (6) Conjunctival hemorrhage of right eye Is this a current diagnosis for this admission?: Yes (7) Bilateral hydronephrosis Is this a current diagnosis for this admission?: Yes (8) Hematuria Is this a current diagnosis for this admission?: Yes (9) Sepsis Is this a current diagnosis for this admission?: Yes - Additional Information Prescriptions: Finasteride [Proscar 5 mg Tablet] 5 mg PO QHS #90 tablet Home Medications: Albuterol Sulfate [Ventolin HFA MDI 18 GM] 1 puff IH Q4HP PRN 05/30/12 Metformin HCl [Glucophage 500 mg Tablet] 500 mg PO Q12 05/30/12 Aspirin [Aspirin 81 mg Chewable Tablet] 1 tab PO DAILY 11/25/15 Ferrous Sulfate [Feosol] 325 mg PO DAILY 11/25/15 Multivitamin [Multivitamins] 1 tab PO DAILY 11/25/15 Spironolact/Hydrochlorothiazid [Aldactazide 25-25 Tablet] 1 tab PO DAILY Atorvastatin Calcium [Lipitor 40 mg Tablet] 40 mg PO QHS 10/09/17 Isosorbide Mononitrate [Isosorbide Mononitrate ER] 60 mg PO DAILY 10/09/17 Nitroglycerin [Nitrostat] 0.4 mg SL DAILYP PRN 10/09/17 Finasteride [Proscar 5 mg Tablet] 5 mg PO QHS #90 tablet 10/17/17 Tamsulosin HCl [Flomax 0.4 mg Cap.sr] 0.8 mg PO DAILY #0 10/17/17 History of Present Illness History of Present Illness: EDUARD Calix MIKO is a 72 year old male he has a history of type 2 diabetes mellitus benign prostate hyperplasia, he had prostate biopsy done about 2 days ago, he came to the emergency room because he could not urinate after the biopsy was done. The prostate biopsy was done at the [facility] in [place]. In the emergency room a Venegas catheter was inserted and he was advised to see me in the office, urethral emergency room last night because he was dribbling urine, he had a fever the emergency room was evaluated, he was found to be febrile there was associated leukocytosis, it was felt that he was septic from UTI, hospital admission was advised by the ED physician. Hospital Course Hospital Course: Patient was admitted for the management of sepsis due to UTI he was treated empirically with intravenous ertapenem no specific pathogen was cultured from the urine which is not uncommon ,he does recently had prostate biopsy and he was premedicated with gentamicin and fluoroquinolones. I spoke to the urologist who gave me the history that was the urologist that performed the biopsy of the prostate gland. It is not uncommon not to culture any pathogen especially after receiving antibiotic. patient came in with sepsis syndrome, high fever, leukocytosis, with indwelling catheter. Despite IV antibiotic he had episode of high fever in the hospital, intra-abdominal abscess was suspected CT scan of the abdomen and pelvis was done with contrast, it showed no abscess in the abdomen or pelvis but it showed bilateral hydronephrosis, I spoke to the urologist and the consensus was that he needed to increase the dose of tamsulosis to 0.8 because he has very large prostate and he was also started on finasteride. Physical Exam Vital Signs: Temp Pulse Resp BP Pulse Ox 98.4 F 66 20 143/83 H 96 10/17/17 19:59 10/17/17 19:59 10/17/17 19:59 10/17/17 19:59 10/17/17 19:59 Intake & Output 10/16/17 10/17/17 10/18/17 06:59 06:59 06:59 Intake Total 3063 4660 07086 Output Total 3372 1742 2209 Balance -898 -7009 9183 Weight 117.2 kg 114.6 kg General appearance: PRESENT: no acute distress, well-developed, well-nourished Head exam: PRESENT: atraumatic, normocephalic Eye exam: PRESENT: conjunctiva pink, EOMI, PERRLA Ear exam: PRESENT: normal external ear exam Mouth exam: PRESENT: moist, tongue midline Neck exam: PRESENT: full ROM Respiratory exam: PRESENT: clear to auscultation amanda Cardiovascular exam: PRESENT: RRR, +S1, +S2 Pulses: PRESENT: normal dorsalis pedis pul, +2 pedal pulses bilateral Vascular exam: PRESENT: normal capillary refill GI/Abdominal exam: PRESENT: normal bowel sounds, soft Rectal exam: PRESENT: deferred Neurological exam: PRESENT: alert, awake, oriented to person, oriented to place , oriented to time, oriented to situation, CN II-XII grossly intact Psychiatric exam: PRESENT: appropriate affect, normal mood Skin exam: PRESENT: dry, intact, warm Results Laboratory Results: 10/17/17 14:58 10/17/17 14:58 10/17/17 10/17/17 14:58 14:58 WBC 10.3 RBC 3.88 L Hgb 10.9 L Hct 32.5 L MCV 84 MCH 28.2 MCHC 33.7 RDW 14.1 H Plt Count 315 Seg Neutrophils % 76.0 Lymphocytes % 14.6 Monocytes % 6.9 Eosinophils % 2.2 Basophils % 0.3 Absolute Neutrophils 7.8 Absolute Lymphocytes 1.5 Absolute Monocytes 0.7 Absolute Eosinophils 0.2 Absolute Basophils 0.0 Sodium 143.9 Potassium 4.1 Chloride 103 Carbon Dioxide 28 Anion Gap 13 BUN 21 H Creatinine 1.23 Est GFR ( Amer) > 60 Est GFR (Non-Af Amer) 58 L Glucose 106 Calcium 9.2 Total Bilirubin 0.1 L AST 91 H ALT 118 H Alkaline Phosphatase 59 Total Protein 6.3 Albumin 3.1 L 10/11/17 22:55 Blood Blood Culture - Final NO GROWTH IN 5 DAYS 10/11/17 22:15 Blood Blood Culture - Final NO GROWTH IN 5 DAYS Impressions: Chest X-Ray 10/08/17 23:46 IMPRESSION: No acute cardiopulmonary findings. Abdomen/Pelvis CT 10/12/17 00:00 IMPRESSION: Venegas catheter is identified with the balloon and its tip at the level of the prostatic urethra. The prostate is enlarged. The bladder is distended with an air-fluid level being identified which could be related to instrumentation or related to an infectious process. Clinical correlation is recommended. There is mild hydronephrosis of the kidneys and fullness of the ureters extending to the bladder. There is minimal perinephric soft tissue stranding bilaterally. Other findings as noted above Qualifiers - * P[place]INT BEING DISCHARGED WITH ANY OF THE FOLLOWING DIAGNOSIS?: No
[2017-10-17] MEDS: FINASTERIDE 5 MG TABLET PO SCH (21:28)
[2017-10-17] MEDS: ATORVASTATIN CALCIUM 40 MG TABLET PO SCH (21:28)
[2017-10-18] MEDS: HEPARIN SOD (PORCINE) 5,000 UNIT/ML 1 ML SYRINGE SUBCUT SCH (05:47)
[2017-10-18] MEDS: METFORMIN HCL 500 MG TABLET PO SCH (08:42)
[2017-10-18] MEDS: SPIRONOLACTONE 25 MG TABLET PO SCH (09:21)
[2017-10-18] MEDS: MULTIVITAMIN TABLET PO SCH (09:21)
[2017-10-18] MEDS: FERROUS SULFATE 325 MG TABLET PO SCH (09:22)
[2017-10-18] MEDS: HYDROCHLOROTHIAZIDE 25 MG TABLET PO SCH (09:22)
[2017-10-18] MEDS: AMLODIPINE BESYLATE 5 MG TABLET PO SCH (09:22)
[2017-10-18] MEDS: DOCUSATE SODIUM 100 MG CAPSULE PO SCH (09:22)
[2017-10-18] MEDS: TAMSULOSIN HCL 0.4 MG CAP.SR.24H PO SCH (09:22)
[2017-10-18] MEDS ORDERED: ISOSORBIDE MONONITRATE 30 MG TAB.ER.24H PO SCH (10:00)
[2017-10-18 11:00] VITALS: BP 119/65
== END 2017-10-18 11:21 | disposition home or self-care (01) | DRG 872 ==
LOC: ER 21:16 → EH 10-09 00:54 → 4N 10-09 03:05
PROVIDERS: ADMIT Internal Medicine; ATTEND Internal Medicine
DX: A41.9 Sepsis, unspecified organism (principal); T83.511A Infection and inflammatory reaction due to indwelling urethral catheter, initial encounter; N17.9 Acute kidney failure, unspecified; N39.0 Urinary tract infection, site not specified; N13.30 Unspecified hydronephrosis; E11.42 Type 2 diabetes mellitus with diabetic polyneuropathy; E78.00 Pure hypercholesterolemia, unspecified; I10 Essential (primary) hypertension; J44.9 Chronic obstructive pulmonary disease, unspecified; R31.9 Hematuria, unspecified; R33.9 Retention of urine, unspecified; N40.1 Benign prostatic hyperplasia with lower urinary tract symptoms; H11.31 Conjunctival hemorrhage, right eye; I25.2 Old myocardial infarction; Z79.84 Long term (current) use of oral hypoglycemic drugs; Z79.82 Long term (current) use of aspirin; Z79.51 Long term (current) use of inhaled steroids; Z79.899 Other long term (current) drug therapy
CPT/HCPCS: 36415; 51702; 71046; 74177; 80048; 80053; 80061; 80076; 81001; 82140; 82150; 82272; 82803; 82962; 83036; 83605; 83690; 83735; 84100; 84439; 84443; 85025; 85610; 85730; 87040; 87086; 93005; 93010; 99285; J0692; J1335; J1644; J3370; J3490; J7030

== ENCOUNTER 2017-10-18 17:36 | Emergency (ER) | payer OTHER, MEDICARE ==
--- NOTE | 2017-10-18 19:59 | ER Document Report ---
ED General - General Chief Complaint: Venegas cath leaking Stated Complaint: CATHETER LEAKING/POST PROSTATE BIOPSY Time Seen by Provider: 10/18/17 19:38 Mode of Arrival: Ambulatory Information source: Patient Notes: 72-year-old male presents with complaints of leaking from his Venegas bag catheter Patient notes he had a prostate biopsy performed yesterday was sent home with leg Venegas bag in place that there was some leaking and it was wet in the bed Patient denies any blood or any other concerns TRAVEL OUTSIDE OF THE [place] IN LAST 30 DAYS: No - HPI Onset: Yesterday Onset/Duration: Sudden Quality of pain: No pain Severity: Mild Pain Level: Denies Associated symptoms: None Exacerbated by: Denies Relieved by: Denies Similar symptoms previously: Yes Recently seen / treated by doctor: Yes - Related Data Allergies/Adverse Reactions: No Known Allergies Allergy (Verified 10/18/17 19:35) Past Medical History - Social History Smoking Status: Former Smoker Cigarette use (# per day): No Chew tobacco use (# tins/day): No Smoking Education Provided: No Frequency of alcohol use: None Drug Abuse: None Family History: Reviewed & Not Pertinent Patient has suicidal ideation: No Patient has homicidal ideation: No - Past Medical History Cardiac Medical History: Reports: Hx Heart Attack, Hx Hypercholesterolemia, Hx Hypertension Pulmonary Medical History: Reports: Hx COPD Endocrine Medical History: Reports: Hx Diabetes Mellitus Type 2 Renal/ Medical History: Denies: Hx Peritoneal Dialysis Psychiatric Medical History: Denies: Hx Depression Past Surgical History: Reports: Hx Cardiac Surgery - stent, Hx Coronary Stent, Other - Prostate biopsy - Immunizations Hx Diphtheria, Pertussis, Tetanus Vaccination: Yes Review of Systems - Review of Systems Notes: REVIEW OF SYSTEMS: CONSTITUTIONAL : Denies fever, chills, or sweats. Denies recent illness. EENT: Denies eye, ear, throat, or mouth pain or symptoms. Denies nasal or sinus congestion or discharge. Denies throat, tongue, or mouth swelling or difficulty swallowing. CARDIOVASCULAR: Denies chest pain. Denies palpitations or racing or irregular heart beat. Denies ankle edema. RESPIRATORY: Denies cough, cold, or chest congestion. Denies shortness of breath, difficulty breathing, or wheezing. GASTROINTESTINAL: Denies abdominal pain or distention. Denies nausea, vomiting , or diarrhea. Denies blood in vomitus, stools, or per rectum. Denies black, tarry stools. Denies constipation. GENITOURINARY: Denies difficulty urinating, painful urination, burning, frequency, blood in urine, or discharge. Admits to a urine leaking from Venegas cath MUSCULOSKELETAL: Denies back or neck pain or stiffness. Denies joint pain or swelling. SKIN: Denies rash, lesions or sores. HEMATOLOGIC : Denies easy bruising or bleeding. LYMPHATIC: Denies swollen, enlarged glands. NEUROLOGICAL: Denies confusion or altered mental status. Denies passing out or loss of consciousness. Denies dizziness or lightheadedness. Denies headache. Denies weakness or paralysis or loss of use of either side. Denies problems with gait or speech. Denies sensory loss, numbness, or tingling. Denies seizures. PSYCHIATRIC: Denies anxiety or stress. Denies depression, suicidal ideation, or homicidal ideation. ALL OTHER SYSTEMS REVIEWED AND NEGATIVE. Dictation was performed using [employer] voice recognition software PHYSICAL EXAMINATION: GENERAL: Well-appearing, well-nourished and in no acute distress. HEAD: Atraumatic, normocephalic. EYES: Pupils equal round and reactive to light, extraocular movements intact, sclera anicteric, conjunctiva are normal. ENT: Nares patent, oropharynx clear without exudates. Moist mucous membranes. NECK: Normal range of motion, supple without lymphadenopathy LUNGS: Breath sounds clear to auscultation bilaterally and equal. No wheezes rales or rhonchi. HEART: Regular rate and rhythm without murmurs ABDOMEN: Soft, nontender, nondistended abdomen. No guarding, no rebound. No masses appreciated. Venegas bag was evaluated there is no leaking noted, Venegas is in place is no urine around the penis itself Musculoskeletal: Normal range of motion, no pitting or edema. No cyanosis. NEUROLOGICAL: Cranial nerves grossly intact. Normal speech, normal gait. Normal sensory, motor exams PSYCH: Normal mood, normal affect. SKIN: Warm, Dry, normal turgor, no rashes or lesions noted. Physical Exam - Vital signs Vitals: Temp Pulse Resp BP Pulse Ox 97.9 F 70 18 136/77 H 97 10/18/17 17:56 10/18/17 17:56 10/18/17 17:56 10/18/17 17:56 10/18/17 17:56 Course - Re-evaluation Re-evalutation: 10/18/17 19:58 I believe the bag itself was loose at the end, the urine was done without patient overall looks well will be discharged home as follow-up with his urologist tomorrow After performing a Medical Screening Examination, I estimate there is LOW risk for ACUTE APPENDICITIS, BOWEL OBSTRUCTION, ACUTE CHOLECYSTITIS, PERFORATED DIVERTICULITIS, INCARCERATED HERNIA, PANCREATITIS, TESTICULAR TORSION or PERFORATED ULCER, thus I consider the discharge disposition reasonable. Also, there is no evidence or peritonitis, sepsis, or toxicity. I have reevaluated this patient multiple times and no significant life threatening changes are noted. The patient and I have discussed the diagnosis and risks, and we agree with discharging home with close follow-up with the understanding that symptoms and presentations can change. We also discussed returning to the Emergency Department immediately if new or worsening symptoms occur. We have discussed the symptoms which are most concerning (e.g., bloody stool, fever, changing or worsening pain, intractable vomiting - standard verbal up date) that necessitate immediate return. - Vital Signs Vital signs: Temp Pulse Resp BP Pulse Ox 97.9 F 70 18 136/77 H 97 10/18/17 17:56 10/18/17 17:56 10/18/17 17:56 10/18/17 17:56 10/18/17 17:56 Discharge - Discharge Clinical Impression: Venegas catheter problem Qualifiers: Encounter type: initial encounter Qualified Code(s): T83.9XXA - Unspecified complication of genitourinary prosthetic device, implant and graft, initial encounter Condition: Stable Disposition: HOME, SELF-CARE Additional Instructions: Please follow-up with your urologist tomorrow per your previous appointment or return immediately if there are any other concerns Referrals: TERSEA MISTRY MD [Primary Care Provider] - Follow up as needed
[2017-10-18 20:03] VITALS: BP 143/73
== END 2017-10-18 20:03 | disposition home or self-care (01) ==
LOC: ER 17:36
DX: T83.9XXA Unspecified complication of genitourinary prosthetic device, implant and graft, initial encounter (principal); X58.XXXA Exposure to other specified factors, initial encounter; E78.00 Pure hypercholesterolemia, unspecified; I10 Essential (primary) hypertension; J44.9 Chronic obstructive pulmonary disease, unspecified; Z87.891 Personal history of nicotine dependence; E11.9 Type 2 diabetes mellitus without complications; I25.2 Old myocardial infarction
CPT/HCPCS: 99283

== ENCOUNTER 2019-03-07 18:13 | Emergency (ER) | payer OTHER, MEDICARE ==
--- NOTE | 2019-03-07 18:59 | ER Document Report ---
ED Medical Screen (RME) - General Chief Complaint: Shoulder Pain Stated Complaint: RIGHT SHOULDER PAIN Time Seen by Provider: 03/07/19 18:52 Primary Care Provider: TERESA MISTRY MD [Primary Care Provider] - Follow up as needed Mode of Arrival: Ambulatory Information source: Patient Notes: This 73-year-old male presents emergency department with complaints of right shoulder pain. He reports he started hurting just woke up with the pain 5 days ago. He which his primary care provider they gave him a steroid injection and it made it feel better for just a little bit and then the pain came right back. He also reports he puts a heating pad on the shoulder and it feels better. Patient then goes on to discuss how he is not making enough water. He discusses how he is been short of breath and is scheduled to have some kind of test on his heart. Denies chest pain fever vomiting diarrhea at this time. I have greeted and performed a rapid initial assessment of this patient. A comprehensive ED assessment and evaluation of the patient, analysis of test results and completion of the medical decision making process will be conducted by additional ED providers. Dictation of this chart was performed using voice recognition software; therefore, there may be some unintended grammatical errors. TRAVEL OUTSIDE OF THE [place] IN LAST 30 DAYS: No - Related Data Allergies/Adverse Reactions: No Known Allergies Allergy (Verified 03/07/19 18:15) Past Medical History - Social History Chew tobacco use (# tins/day): No Frequency of alcohol use: None Drug Abuse: None - Past Medical History Cardiac Medical History: Reports: Hx Heart Attack, Hx Hypercholesterolemia, Hx Hypertension Pulmonary Medical History: Reports: Hx COPD Endocrine Medical History: Reports: Hx Diabetes Mellitus Type 2 Renal/ Medical History: Denies: Hx Peritoneal Dialysis Psychiatric Medical History: Denies: Hx Depression Past Surgical History: Reports: Hx Cardiac Surgery - stent, Hx Coronary Stent, Other - Prostate biopsy - Immunizations Hx Diphtheria, Pertussis, Tetanus Vaccination: Yes Physical Exam - Vital signs Vitals: Temp Pulse Resp BP Pulse Ox 98.8 F 78 18 135/61 H 97 03/07/19 18:18 03/07/19 18:18 03/07/19 18:18 03/07/19 18:18 03/07/19 18:18 Course - Vital Signs Vital signs: Temp Pulse Resp BP Pulse Ox 98.8 F 78 18 135/61 H 97 03/07/19 18:18 03/07/19 18:18 03/07/19 18:18 03/07/19 18:18 03/07/19 18:18 Doctor's Discharge - Discharge Referrals: TERESA MISTRY MD [Primary Care Provider] - Follow up as needed
--- NOTE | 2019-03-07 19:33 | RADIOLOGY REPORT (SQ) ---
EXAM DESCRIPTION: SHOULDER RIGHT 2 OR MORE VIEWS COMPLETED DATE/TIME: 03/07/2019 7:26 pm REASON FOR STUDY: PAIN COMPARISON: None. NUMBER OF VIEWS: Three views. TECHNIQUE: Internal rotation, external rotation, and Y view images acquired of the right shoulder. LIMITATIONS: None. FINDINGS: MINERALIZATION: Normal. BONES: No acute fracture. No worrisome bone lesions. JOINTS: No dislocation. VISUALIZED LUNGS AND RIBS: No pneumothorax. No rib fracture. SOFT TISSUES: No radiopaque foreign body. OTHER: No other significant finding. IMPRESSION: NEGATIVE STUDY OF THE RIGHT SHOULDER. NO RADIOGRAPHIC EVIDENCE OF ACUTE INJURY. TECHNICAL DOCUMENTATION: JOB ID: [id number] [employer]- All Rights Reserved Reading location - IP/workstation name: [email or web address]
[2019-03-07 20:11] LABS: ABSOLUTE BASOPHILS # (AUTO) 0.1 10^3/uL (0.0-0.2); ABSOLUTE LYMPHOCYTES (AUTO) 1.8 10^3/uL (0.5-4.7); ABSOLUTE MONOCYTES (AUTO) 0.9 10^3/uL (0.1-1.4); ABSOLUTE NEUT (AUTO) 8.6 10^3/uL (1.7-8.2); BASOPHILS % (AUTO) 0.5 % (0-2); EOSINOPHILS % (AUTO) 0.3 % (0-6); HEMATOCRIT 38.9 % (37.9-51.0); HEMOGLOBIN 13.2 g/dL (13.5-17.0); LYMPHOCYTES % (AUTO) 15.5 % (13-45); MEAN CORPUSCULAR HEMOGLOBIN 28.9 pg (27.0-33.4); MEAN CORPUSCULAR HGB CONC 34.1 g/dL (32.0-36.0); MEAN CORPUSCULAR VOLUME 85 fl (80-97); MONOCYTES % (AUTO) 8.2 % (3-13); PLATELET COUNT 212 10^3/uL (150-450); RED BLOOD COUNT 4.58 10^6/uL (4.35-5.55); RED CELL DISTRIBUTION WIDTH 14.4 % (11.5-14.0); SEGMENTED NEUTROPHILS % (AUTO) 75.5 % (42-78); TOTAL CELLS COUNTED % (AUTO) 100 %; WHITE BLOOD COUNT 11.3 10^3/uL (4.0-10.5)
[2019-03-07 20:14] LABS: APPEARANCE,URINE CLEAR; BILIRUBIN,URINE NEGATIVE (NEGATIVE); COLOR,URINE YELLOW; GLUCOSE, URINE NEGATIVE (NEGATIVE); KETONES,URINE NEGATIVE (NEGATIVE); LEUKOCYTE ESTERASE,URINE NEGATIVE (NEGATIVE); NITRITE,URINE NEGATIVE (NEGATIVE); PROTEIN,URINE NEGATIVE (NEGATIVE); URINE SPECIFIC GRAVITY 1.019; UROBILINOGEN,URINE NEGATIVE mg/dL (<2.0)
[2019-03-07 20:30] LABS: ALBUMIN 4.4 g/dL (3.5-5.0); ALKALINE PHOSPHATASE 72 U/L (38-126); ANION GAP 11 (5-19); ASPARTATE AMINO TRANSFERASE 18 U/L (17-59); BILIRUBIN,DIRECT 0.1 mg/dL (0.0-0.4); BILIRUBIN,TOTAL 0.2 mg/dL (0.2-1.3); BLOOD UREA NITROGEN 22 mg/dL (7-20); CALCIUM 9.9 mg/dL (8.4-10.2); CARBON DIOXIDE 26 mmol/L (22-30); CHLORIDE 103 mmol/L (98-107); GLUCOSE 107 mg/dL (75-110); POTASSIUM 3.8 mmol/L (3.6-5.0); TOTAL PROTEIN 7.6 g/dL (6.3-8.2)
--- NOTE | 2019-03-07 22:37 | ER Document Report ---
ED General - General Chief Complaint: Shoulder Pain Stated Complaint: RIGHT SHOULDER PAIN Time Seen by Provider: 03/07/19 18:52 Primary Care Provider: TERESA MISTRY MD [Primary Care Provider] - Follow up as needed Mode of Arrival: Ambulatory TRAVEL OUTSIDE OF THE [place] IN LAST 30 DAYS: No - HPI Notes: Patient is a 73-year-old male who presents emergency department for evaluation. He initially complains of right shoulder pain. He states is been going on for the last several days. He saw his primary care physician who injected him with a "cortisone shot" and made it feel better for a few days. He states his pain returns. It is worsened by position, improved with heating pad. Evidently there was some complaint of shortness of breath or chest pain out front. The patient to me states he has absolutely no chest pain or shortness of breath. He states to me only that he has been "told that he sounds short of breath on the phone." He does admit to pending cardiac test, but is a very poor historian and cannot further elaborate. - Related Data Allergies/Adverse Reactions: No Known Allergies Allergy (Verified 03/07/19 18:15) Past Medical History - General Information source: Patient - Social History Smoking Status: Former Smoker Chew tobacco use (# tins/day): No Frequency of alcohol use: None Drug Abuse: None Family History: Reviewed & Not Pertinent Patient has suicidal ideation: No Patient has homicidal ideation: No - Past Medical History Cardiac Medical History: Reports: Hx Coronary Artery Disease, Hx Heart Attack, Hx Hypercholesterolemia, Hx Hypertension Pulmonary Medical History: Reports: Hx COPD Endocrine Medical History: Reports: Hx Diabetes Mellitus Type 2 Renal/ Medical History: Denies: Hx Peritoneal Dialysis Psychiatric Medical History: Denies: Hx Depression Past Surgical History: Reports: Hx Cardiac Surgery - stent, Hx Coronary Stent, Other - Prostate biopsy - Immunizations Hx Diphtheria, Pertussis, Tetanus Vaccination: Yes Review of Systems - Review of Systems Constitutional: No symptoms reported EENT: No symptoms reported Cardiovascular: See HPI Respiratory: See HPI Gastrointestinal: No symptoms reported Genitourinary: No symptoms reported Musculoskeletal: See HPI Skin: No symptoms reported Neurological/Psychological: No symptoms reported Physical Exam - Vital signs Vitals: Temp Pulse Resp BP Pulse Ox 98.8 F 78 18 135/61 H 97 03/07/19 18:18 03/07/19 18:18 03/07/19 18:18 03/07/19 18:18 03/07/19 18:18 - Notes Notes: Vital signs reviewed, please refer to chart. Head is normocephalic, atraumatic. Pupils equal round, reactive to light. Neck is supple without meningismus. Heart is regular rate and rhythm. Lungs are clear to auscultation bilaterally. Abdomen is soft, nontender, normoactive bowel sounds throughout. Extremities without cyanosis, clubbing. Posterior calves are nontender. Peripheral pulses are equal. Skin is warm and dry. Patient is awake, alert, neurological exam is nonfocal. Semination of the right shoulder reveals no obvious deformity. He has some pain with passive range of motion, active range of motion limited secondary to pain as well. Full range of motion of the elbow, wrist, fingers, thumb. Radial pulse 2+, sensation intact. Negative apprehension, negative Yergason's test. Course - Re-evaluation Re-evalutation: 03/07/19 22:35 Patient presents emergency department for evaluation. He primarily complains of right shoulder pain. At this point cardiac work-up ensued. Laboratory investigations are unremarkable. He does have EKG abnormalities, perhaps slightly worsened since last study, but really largely unchanged. His cardiac enzymes are negative. He has further testing as ordered through primary care. We will have him follow-up, return to the ED with worsening or new concerning symptoms of any sort. - Vital Signs Vital signs: Temp Pulse Resp BP Pulse Ox 98.8 F 78 18 135/61 H 97 03/07/19 18:18 03/07/19 18:18 03/07/19 18:18 03/07/19 18:18 03/07/19 18:18 - Laboratory Result Diagrams: 03/07/19 19:50 03/07/19 19:50 Laboratory results interpreted by me: 03/07/19 03/07/19 03/07/19 19:50 19:50 19:50 WBC 11.3 H Hgb 13.2 L RDW 14.4 H Absolute Neuts (auto) 8.6 H BUN 22 H Est GFR (MDRD) Non-Af 58 L Urine Blood SMALL H - Diagnostic Test Radiology reviewed: Reports reviewed Radiology results interpreted by me: 03/07/19 22:36 Shoulder X-Ray 03/07/19 18:58 IMPRESSION: NEGATIVE STUDY OF THE RIGHT SHOULDER. NO RADIOGRAPHIC EVIDENCE OF ACUTE INJURY. - EKG Interpretation by Me Additional EKG results interpreted by me: 03/07/19 22:36 Sinus bradycardia with a rate of 56 bpm. Normal axis and intervals. No ST elevation. T wave inversion inferior concerning for possible ischemia, without perhaps slight worsening when compared to prior study of October 09, 2017. Discharge - Discharge Clinical Impression: Right shoulder pain, Abnormal EKG Condition: Stable Disposition: HOME, SELF-CARE Instructions: Electrogram Abnormality ([facility]) Additional Instructions: You do have some abnormalities on your EKG, but they are largely unchanged from prior study. Your laboratory investigations did not reveal any significant abnormality. No clear cause was found for your shoulder pain today. Continue to follow-up with primary care. Continue to seek out further cardiac testing. Return to the ED with worsening or new concerning symptoms of any sort. Referrals: TERESA MISTRY MD [Primary Care Provider] - Follow up as needed
[2019-03-08 00:19] VITALS: BP 151/85
--- NOTE | 2019-03-08 09:34 | EKG REPORT ---
SEVERITY:- ABNORMAL ECG - SINUS RHYTHM ABNORMAL T, CONSIDER ISCHEMIA, INFERIOR LEADS : Confirmed by: Cielo Land MD 08-Mar-2019 09:34:08
== END 2019-03-07 22:57 | disposition home or self-care (01) ==
LOC: ER 18:13
DX: M25.511 Pain in right shoulder (principal); R94.31 Abnormal electrocardiogram [ECG] [EKG]; Z87.891 Personal history of nicotine dependence; I25.10 Atherosclerotic heart disease of native coronary artery without angina pectoris; I25.2 Old myocardial infarction; I10 Essential (primary) hypertension; J44.9 Chronic obstructive pulmonary disease, unspecified; E11.9 Type 2 diabetes mellitus without complications
CPT/HCPCS: 36415; 80053; 81001; 85025; 93005; 93010; 99284

== ENCOUNTER 2019-03-11 20:33 | Emergency (ER) | payer OTHER, MEDICARE ==
--- NOTE | 2019-03-11 21:45 | ER Document Report ---
ED General - General Chief Complaint: Shoulder Pain Stated Complaint: SHOULDER PAIN Time Seen by Provider: 03/11/19 21:45 Primary Care Provider: TERESA MISTRY MD [Primary Care Provider] - Follow up as needed Notes: Patient is a 73-year-old male that presents to the emergency department for chief complaint of right shoulder pain. Patient states he has been having right shoulder pain for over a week now, is been constant, worse with movement. He was seen in the emergency department 3 days ago and he also saw his primary care the day prior, did get a "cortisone shot" in his right shoulder, he states he got some relief, but then it came back. He denies any specific injury he can think of. He describes the pain as a constant ache, is a 3 out of 10. He states occasionally he feels a little short of breath but denies any chest pain. Denies any swelling in his legs. He is somewhat of a poor historian. Denies any other complaints at this time, no recent fevers, chills, cough, nausea, vomiting, abdominal pain. Past Medical History: CAD, BPH, hypertension Past Surgical History: PCI with stenting Social History: Lives at home, denies current tobacco, alcohol or drug use. Family History: Reviewed and noncontributory for presenting illness Allergies: Reviewed, see documented allergy list. REVIEW OF SYSTEMS: Other than noted above, the 12 point review of systems was reviewed with the patient and were negative, all pertinent findings are included in the HPI. PHYSICAL EXAMINATION: Vital signs reviewed, nursing noted reviewed. GENERAL: Elderly male, well-developed, no acute distress HEAD: Atraumatic, normocephalic. EYES: Eyes appear normal, extraocular movements intact, sclera anicteric, conjunctiva are normal. ENT: nares patent, oropharynx clear without exudates. Moist mucous membranes. NECK: Normal range of motion, supple without lymphadenopathy LUNGS: Breath sounds clear to auscultation bilaterally and equal. No wheezes rales or rhonchi. HEART: Regular rate and rhythm without murmurs ABDOMEN: Soft, nontender, normoactive bowel sounds. No rebound, guarding, or rigidity. No masses appreciated. EXTREMITIES: The patient's right shoulder, was placed through full range of motion, he has some discomfort particularly with internal and external rotation. He has full range of motion however with active and passive range of motion. Negative Parker and empty can testing, some discomfort with Spurling's maneuver. There is mild tenderness to palpation over the shoulder joint itself along the distal end of the acromion. the rest the patient's extremity exam is grossly unremarkable, and he is neurovascular intact distally in all extremities. NEUROLOGICAL: No focal neurological deficits. Moves all extremities spontaneously Motor and sensory grossly intact on exam. PSYCH: Normal mood, normal affect. SKIN: Warm, Dry, normal turgor, no rashes or lesions noted on exposed skin TRAVEL OUTSIDE OF THE [place] IN LAST 30 DAYS: No - Related Data Allergies/Adverse Reactions: No Known Allergies Allergy (Verified 03/07/19 18:15) Past Medical History - Social History Smoking Status: Never Smoker Family History: Reviewed & Not Pertinent Patient has suicidal ideation: No Patient has homicidal ideation: No - Past Medical History Cardiac Medical History: Reports: Hx Coronary Artery Disease, Hx Heart Attack, Hx Hypercholesterolemia, Hx Hypertension Pulmonary Medical History: Reports: Hx COPD Endocrine Medical History: Reports: Hx Diabetes Mellitus Type 2 Renal/ Medical History: Denies: Hx Peritoneal Dialysis Psychiatric Medical History: Denies: Hx Depression Past Surgical History: Reports: Hx Cardiac Surgery - stent, Hx Coronary Stent, Other - Prostate biopsy - Immunizations Hx Diphtheria, Pertussis, Tetanus Vaccination: Yes Physical Exam - Vital signs Vitals: Temp Pulse Resp BP Pulse Ox 98.8 F 80 17 145/77 H 96 03/11/19 20:57 03/11/19 20:57 03/11/19 20:57 03/11/19 20:57 03/11/19 20:57 Course - Re-evaluation Re-evalutation: Patient seen and examined, vital signs reviewed, patient's chart was reviewed, he was seen 3 days ago, he had blood work at that time, EKG and shoulder x-rays, and his work-up appeared unremarkable at that time, will obtain a full chest x- ray as he is exhibiting some shortness of breath at times, and repeat his EKG, and dosing with Tylenol, will prescribe him tramadol, and if all looks okay, and have a follow-up with his primary care, he is unable to receive NSAIDs due to his past medical history. Patient is agreeable to this plan of care. Patient's repeat EKG, and chest x-ray were unremarkable, at this point I feel it safe to discharge the patient to home, he is given a prescription for tramadol, and advised to take Tylenol and advised to follow-up with his primary care patient is agreeable to this and discharged home. Chest X-Ray 03/11/19 22:13 IMPRESSION: No acute cardiopulmonary disease. - Vital Signs Vital signs: Temp Pulse Resp BP Pulse Ox 98.8 F 80 17 145/77 H 96 03/11/19 20:57 03/11/19 20:57 03/11/19 20:57 03/11/19 20:57 03/11/19 20:57 - EKG Interpretation by Me Additional EKG results interpreted by me: EKG demonstrates sinus rhythm with rare PVC with a ventricular rate of 76 bpm, slight left axis deviation, normal intervals, T wave inversion in lead III, nonspecific, this is compared with prior EKG from 03/07/2019, without significant change. Discharge - Discharge Clinical Impression: Right shoulder pain Qualifiers: Chronicity: acute Qualified Code(s): M25.511 - Pain in right shoulder Condition: Stable Disposition: HOME, SELF-CARE Instructions: Exercise Program for the Shoulder ([facility]) Additional Instructions: Please try taking 2 extra strength Tylenol, every 8 hours if needed for pain, if needed you may take the prescribed tramadol 50 mg, every 8 hours for worse pain. Please follow-up with Dr. Mistry. Prescriptions: Tramadol HCl [Ultram] 50 mg PO Q8H PRN #15 tablet PRN Reason: shoulder pain Referrals: TERESA MISTRY MD [Primary Care Provider] - Follow up in 3-5 days
[2019-03-11] MEDS ORDERED: ACETAMINOPHEN 325 MG TABLET PO ONE (22:14)
[2019-03-11] MEDS ORDERED: ACETAMINOPHEN 325 MG TABLET ONE (22:20)
--- NOTE | 2019-03-11 23:08 | RADIOLOGY REPORT (SQ) ---
XR CHEST 2 VIEWS CLINICAL STATEMENT: dyspnea COMPARISON: 10/09/2017 FINDINGS: Heart is moderately enlarged. Aorta is mildly uncoiled. There is no focal lung consolidation or pleural effusion. No evidence of pulmonary edema or pneumothorax. Moderate degenerative changes in the thoracic spine. IMPRESSION: No acute cardiopulmonary disease.
[2019-03-11 23:46] VITALS: BP 133/78
--- NOTE | 2019-03-12 07:29 | EKG REPORT ---
SEVERITY:- BORDERLINE ECG - SINUS RHYTHM VENTRICULAR PREMATURE COMPLEX BORDERLINE T ABNORMALITIES, INFERIOR LEADS : Confirmed by: Mike Valles MD 12-Mar-2019 07:29:04
== END 2019-03-11 23:46 | disposition home or self-care (01) ==
LOC: ER 20:33
DX: M25.511 Pain in right shoulder (principal); R06.02 Shortness of breath; I10 Essential (primary) hypertension
CPT/HCPCS: 71046; 93005; 93010; 99283

== ENCOUNTER → 2019-08-03 | Outpatient (CLI) | payer OTHER ==
--- NOTE | 2019-08-03 14:45 | RADIOLOGY REPORT (SQ) ---
EXAM DESCRIPTION: U/S RETROPERITON (RENAL/AORTA) COMPLETED DATE/TIME: 08/03/2019 2:24 pm REASON FOR STUDY: N18.3 CHRONIC KIDNEY DISEASE, STAGE 3 (MODERATE) N18.3 CHRONIC KIDNEY DISEASE, ST AGE 3 (MODERATE) COMPARISON: None. TECHNIQUE: Dynamic and static grayscale images acquired of the kidneys and bladder and recorded on P ACS. Additional selected color Doppler and spectral images recorded. LIMITATIONS: None. FINDINGS: RIGHT KIDNEY: Normal size measuring 10.0 cm. Increased echogenicity. Upper pole cyst adilia suring 1.7 cm. There is additional indeterminate exophytic lesion measuring 1.1 cm along the interpo lar region. No hydronephrosis. No calcifications. LEFT KIDNEY: Normal size measuring 11.4 cm. Increased echogenicity. Hypoechoic area along the lowe r pole measuring 1.5 cm, possibly cyst but incompletely characterize No hydronephrosis. No calcificat ions. BLADDER: No masses. OTHER FINDINGS: Enlarged prostate measuring 7.2 x 5.8 x 5.6 cm IMPRESSION: 1. No hydronephrosis. 2. Renal cyst. Additional hypoechoic areas as above, likely cysts but incompletely characterized. 3. Prostatomegaly. TECHNICAL DOCUMENTATION: JOB ID: [id number] [employer]- All Rights Reserved Reading location - IP/workstation name: [email or web address]
== END ==
LOC: RAD 13:40
PROVIDERS: ATTEND Internal Medicine Nephrology
DX: I12.9 Hypertensive chronic kidney disease with stage 1 through stage 4 chronic kidney disease, or unspecified chronic kidney disease (principal); N18.3 Chronic kidney disease, stage 3 (moderate); N28.1 Cyst of kidney, acquired
CPT/HCPCS: 76770